=== PATIENT | female | born 1985 | race Caucasian/White ===

== ENCOUNTER 2020-02-17 20:30 | Emergency (ER) | payer OTHER, SELFPAY ==
[2020-02-17 20:36] VITALS: BP 159/109; PULSE 69; RESP 18; O2SAT 99
--- NOTE | 2020-02-17 20:41 | DI.RAD.S_ITS ---
PROCEDURE: XR CHEST 2V INDICATIONS: shortness of breath TECHNIQUE: 2 views of the chest were acquired. COMPARISON: None. FINDINGS: Surgical changes and devices: None. Lungs and pleura: Lungs are clear. No pleural effusions or pneumothorax. Mediastinum: Mediastinal contours are normal. Heart size is normal. Bones and chest wall: No suspicious bony abnormalities. Soft tissues appear unremarkable. IMPRESSION: No acute process. Dictated by: Ahmet Navarro M.D. on 02/17/2020 at 20:53 Approved by: Ahmet Navarro M.D. on 02/17/2020 at 20:54
[2020-02-17 21:09] VITALS: PULSE 64; O2SAT 99
[2020-02-17 21:12] VITALS: BP 135/82; PULSE 61; RESP 17; O2SAT 100
[2020-02-17 21:13] LABS: Add Manual Diff / Slide Review NO; Basophils Absolute Auto 100 /uL (0-100); Basophils Percent Auto 1.2 % (0-2); Eosinophils Absolute Auto 200 /uL (0-450); Eosinophils Percent Auto 2.3 % (2-4); Hematocrit 41.5 % (36-46); Hemoglobin 13.9 g/dL (12.0-16.0); Lymphocytes Absolute Auto 3200 /uL (1100-4500); Lymphocytes Percent Auto 33.2 % (25-40); Mean Corpuscular HGB Conc 33.5 % (30-36); Mean Corpuscular Hemoglobin 30.2 PG (26-34); Mean Corpuscular Volume 90.1 fL (80-100); Monocytes Absolute Auto 700 /uL (0-900); Neutrophils Absolute Auto 5500 /uL (1500-7000); Neutrophils Percent Auto 56.3 % (50-75); Platelet Count 305 X10^3/uL (150-400); Red Blood Cell Count 4.61 X10^6/uL (4.0-5.2); Red Cell Distribution Width 13.2 % (11.6-14.8); White Blood Cell Count 9.7 X10^3/uL (4.5-11.0)
[2020-02-17 21:24] LABS: Lactate (Lactic Acid) 0.6 mmol/L (0.7-2.1)
[2020-02-17 21:25] LABS: Alanine Aminotransferase 30 IU/L (<35); Albumin Globulin Ratio 1.3 (1.0-2.8); Alkaline Phosphatase 70 U/L (38-126); Aspartate Aminotransferase 32 IU/L (14-36); BUN Creatinine Ratio 14.8 (6-22); Bilirubin Total 0.4 mg/dL (0.2-1.3); Blood Urea Nitrogen 12 mg/dL (7-17); Calcium 9.3 mg/dL (8.4-10.2); Carbon Dioxide 34 mmol/L (22-32); Chloride 102 mmol/L (98-107); Estimated Glomerular Filt Rate > 60.0 mL/min (>60); Glucose 87 mg/dL (70-100); HEMOLYSIS < 15 (0-50); Sodium 139 mmol/L (137-145)
[2020-02-17 21:30] VITALS: BP 124/89; PULSE 73; RESP 17; O2SAT 100
[2020-02-17 21:48] LABS: COVID19 -Nasal RAPID Negative (Negative)
[2020-02-17 22:00] VITALS: BP 136/90; PULSE 75; RESP 22; O2SAT 100
--- NOTE | 2020-02-17 22:02 | ED_ITS ---
HPI - General Adult General Chief complaint: Shortness of Breath/Dyspnea Stated complaint: difficulty breathing, stress Time Seen by Provider: 02/17/20 20:57 Source: patient Mode of arrival: Ambulatory Limitations: no limitations History of Present Illness HPI narrative: 35-year-old female here for evaluation of shortness of breath. She also admits to being extremely anxious and stressed out. She states that for the past several months she occasionally has episodes where she has shortness of breath. There are no chest pain associated with it. She is unsure of his is associated with the anxiety and the stress although she thinks it may be. She states that when the symptoms come on the last for ?a long time ?meaning potentially days/weeks. She is currently having the symptoms. She is currently feeling stressed. Has not been evaluated for these symptoms prior to this. Related Data Allergies Allergy/AdvReac Type Severity Reaction Status Date / Time amoxicillin [AMOXICILLIN] Allergy Unknown Unverified 08/28/17 12:10 Review of Systems Constitutional Constitutional: Denies fever(s) Cardiovascular Cardiovascular: Denies chest pain and Reports dyspnea Respiratory Respiratory: Denies cough and Reports dyspnea Gastrointestinal Gastrointestinal: Denies abdominal pain, Denies nausea and Denies vomiting Genitourinary Genitourinary: Denies dysuria Genitourinary: Denies dysuria Musculoskeletal Musculoskeletal: Denies arthralgias and Denies myalgias Integumentary/Breasts Skin/Breast: Denies rash Neurologic Neurologic: Denies behavioral changes Psychiatric Psychiatric: Denies behavioral changes Hematologic/Lymphatic Hematologic/Lymphatic: Denies easy bleeding and Denies easy bruising Patient History Medical History Anxiety (Inactive) Threatened miscarriage (Inactive) Twin gestation in first trimester (Inactive) Social History Smoking Status: Current some day smoker Smoking Status: Current some day smoker Substance Use Type: marijuana Exam Initial Vital Signs Initial Vital Signs: Vital Signs Pulse Rate 69 02/17/20 20:36 Respiratory Rate 18 02/17/20 20:36 Blood Pressure 159/109 H 02/17/20 20:36 Pulse Oximetry 99 02/17/20 20:36 Const General: cooperative, healthy appearing, comfortable and well developed Limitations: mental status not altered [facility] Head: normal to inspection and normocephalic Resp Effort & Inspection: normal respiratory effort Auscultation: clear to auscultation bilaterally Cardio Rate: regular rate Rhythm: regular rhythm GI Inspection: non-distended Palpation: soft Skin Lesions: no lesions Rashes: no rashes Neuro General: patient alert and patient awake Cognition: normal cognition Speech: speech normal Extrem General: normal to inspection and capillary refill normal Psych Appearance: grossly normal and well kempt Course Orders Ordered: ED Orders 02/17/20 20:41 XR chest 2V Stat Measure peak expiratory flow ONCE RT Consult Eval and Treat Now 02/17/20 21:00 Complete Blood Count AUTO DIFF Stat Comprehensive Metabolic Panel Stat Lactate (Lactic Acid) Stat 02/17/20 21:10 COVID19 -ED/INPAT/OR/L&D Stat Vital Signs Vital signs: Vital Signs - 8 hr 02/17/20 20:36 02/17/20 21:09 02/17/20 21:12 Pulse Rate 69 64 61 Respiratory Rate 18 17 Blood Pressure 159/109 H 135/82 Pulse Oximetry 99 99 100 02/17/20 21:30 02/17/20 22:00 Pulse Rate 73 75 Respiratory Rate 17 22 Blood Pressure 124/89 136/90 Pulse Oximetry 100 100 Medical Decision Making Lab Data Lab results reviewed: Yes I reviewed the patient's lab results. Result diagrams: 02/17/20 21:00 02/17/20 21:00 Labs: Lab Results 02/17/20 02/17/20 02/17/20 Range/Units 21:00 21:00 21:00 WBC 9.7 (4.5-11.0) X10^3/uL RBC 4.61 (4.0-5.2) X10^6/uL Hgb 13.9 (12.0-16.0) g/dL Hct 41.5 (36-46) % MCV 90.1 (80-100) fL MCH 30.2 (26-34) PG MCHC 33.5 (30-36) % RDW 13.2 (11.6-14.8) % Plt Count 305 (150-400) X10^3/uL Neut % (Auto) 56.3 (50-75) % Lymph % (Auto) 33.2 (25-40) % [place] % (Auto) 7.0 (3-14) % Eos % (Auto) 2.3 (2-4) % Baso % (Auto) 1.2 (0-2) % Neut # (Auto) 5500 (0248-4847) /uL Lymph # (Auto) 3200 (5299-1285) /uL [place] # (Auto) 700 (0-900) /uL Eos # (Auto) 200 (0-450) /uL Baso # (Auto) 100 (0-100) /uL Sodium 139 (137-145) mmol/L Potassium 4.0 (3.4-5.1) mmol/L Chloride 102 (98-107) mmol/L Carbon Dioxide 34 H (22-32) mmol/L BUN 12 (7-17) mg/dL Creatinine 0.81 (0.52-1.04) mg/dL Estimated GFR > 60.0 (>60) mL/min BUN/Creatinine Ratio 14.8 (6-22) Glucose 87 (70-100) mg/dL Lactate 0.6 L (0.7-2.1) mmol/L Calcium 9.3 (8.4-10.2) mg/dL Total Bilirubin 0.4 (0.2-1.3) mg/dL AST 32 (14-36) IU/L ALT 30 (<35) IU/L Alkaline Phosphatase 70 (38-126) U/L Total Protein 7.0 (6.3-8.2) g/dL Albumin 4.0 (3.5-5.0) g/dL Globulin 3.0 (1.7-4.1) g/dL Albumin/Globulin Ratio 1.3 (1.0-2.8) COVID-19 PCR (Negative) 02/17/20 Range/Units 21:10 WBC (4.5-11.0) X10^3/uL RBC (4.0-5.2) X10^6/uL Hgb (12.0-16.0) g/dL Hct (36-46) % MCV (80-100) fL MCH (26-34) PG MCHC (30-36) % RDW (11.6-14.8) % Plt Count (150-400) X10^3/uL Neut % (Auto) (50-75) % Lymph % (Auto) (25-40) % [place] % (Auto) (3-14) % Eos % (Auto) (2-4) % Baso % (Auto) (0-2) % Neut # (Auto) (1649-4758) /uL Lymph # (Auto) (5851-1369) /uL [place] # (Auto) (0-900) /uL Eos # (Auto) (0-450) /uL Baso # (Auto) (0-100) /uL Sodium (137-145) mmol/L Potassium (3.4-5.1) mmol/L Chloride (98-107) mmol/L Carbon Dioxide (22-32) mmol/L BUN (7-17) mg/dL Creatinine (0.52-1.04) mg/dL Estimated GFR (>60) mL/min BUN/Creatinine Ratio (6-22) Glucose (70-100) mg/dL Lactate (0.7-2.1) mmol/L Calcium (8.4-10.2) mg/dL Total Bilirubin (0.2-1.3) mg/dL AST (14-36) IU/L ALT (<35) IU/L Alkaline Phosphatase (38-126) U/L Total Protein (6.3-8.2) g/dL Albumin (3.5-5.0) g/dL Globulin (1.7-4.1) g/dL Albumin/Globulin Ratio (1.0-2.8) COVID-19 PCR Negative (Negative) Imaging Data Chest x-ray: Radiologist's Impression: [address] [address] XRay Report Signed Patient: Vivian Downs [facility]#: [id number] : 1985Acct:[id number] Age/Sex: 35 / FDate of Service: 02/17/20 Loc: ED Accession Number: [id number] Procedure: XR chest 2V Ordering Provider: Rajinder Durant D.O. PROCEDURE: XR CHEST 2V INDICATIONS: shortness of breath TECHNIQUE: 2 views of the chest were acquired. COMPARISON: None. FINDINGS: Surgical changes and devices: None. Lungs and pleura: Lungs are clear. No pleural effusions or pneumothorax. Mediastinum: Mediastinal contours are normal. Heart size is normal. Bones and chest wall: No suspicious bony abnormalities. Soft tissues appear unremarkable. IMPRESSION: No acute process. Dictated by: Ahmet Navarro M.D. on 02/17/2020 at 20:53 Approved by: Ahmet Navarro M.D. on 02/17/2020 at 20:54 ECG Data Attestation: I personally reviewed and interpreted this ECG as follows: Prior ECG tracings: not available for review Interpretation: Sinus rhythm Ventricular rate 67 Sinus rhythm in Normal NM interval Normal QRS Normal QTC No ST T wave changes MDM Narrative Medical decision making narrative: She is nontoxic appearing, a benign exam. Chest x-ray is negative. EKG is unremarkable. Low suspicion for ACS. Low suspicion for pulmonary embolism. Low suspicion for any other infectious etiology. I did discuss this with the patient. Provided reassurance that her symptoms were not emergent currently. Informed patient she should talk with her primary doctor about potentially being on long-term anxiety medications. She expressed understanding of this and will contact her primary provider. She has been on these medications in the past but has stopped taking them. No in dication for admission the hospital per over hold on further radiologic studies for now. She was given return precautions. She expressed understanding and agreement. Discharge Plan Departure Patient Disposition: Home Clinical Impression: Anxiety, Shortness of breath Discharge Date/Time: 02/17/20 22:13 Instructions: DI for Anxiety -- Adult Activity Restrictions/Additional Instructions: Your workup here in the emergency department did not show any indication of an emergent issue. Your symptoms could very well be caused by anxiety. Recommend you contact your primary provider for a follow-up like we discussed. Return to the emergency department for any new or worsening symptoms Referrals: Nurys Bravo MD [Primary Care Provider] -
== END 2020-02-17 22:13 | disposition home or self-care (01) ==
PROVIDERS: Emergency Provider Emergency Medicine; Family Provider Family Medicine; PCP Family Medicine
DX: F41.9 Anxiety disorder, unspecified (principal); R06.02 Shortness of breath; Z03.818 Encounter for observation for suspected exposure to other biological agents ruled out
CPT/HCPCS: 36415; 71046; 80053; 83605; 85025; 87635; 93005; 99283

== ENCOUNTER → 2022-03-28 15:00 | Outpatient (CLI) | payer OTHER, SELFPAY ==
--- NOTE | 2022-03-28 | DI.RAD.S_ITS ---
PROCEDURE: XR ACUTE ABDOMEN SERIES INDICATIONS: Left lower quadrant pain TECHNIQUE: One view chest and two views of the abdomen were acquired. COMPARISON: None. FINDINGS: Surgical changes and devices: None. Chest: Lungs are clear. Heart size is normal. No pleural effusions. No pneumoperitoneum. Abdomen: Bowel gas pattern is normal. No suspicious calcifications. Visualized solid organ contours appear normal. Bones: No suspicious bony lesions. IMPRESSION: No acute finding. Dictated by: Soto Armstrong M.D. on 03/29/2022 at 9:22 Approved by: Soto Armstrong M.D. on 03/29/2022 at 9:23
== END ==
PROVIDERS: Family Provider Family Medicine; PCP Family Medicine; Referring Provider Family Medicine; Visit Provider Family Medicine
DX: R10.32 Left lower quadrant pain (principal)
CPT/HCPCS: 74022

== ENCOUNTER 2022-04-19 16:04 | Emergency (ER) | payer OTHER, SELFPAY ==
[2022-04-19] VITALS (12 sets, daily range): BP systolic 131–148; BP diastolic 63–91; PULSE 67–104; RESP 18; TEMP 36.6; O2SAT 92–99; BMI 42.9
--- NOTE | 2022-04-19 16:11 | DI.US.S_ITS ---
PROCEDURE: US ABDOMEN COMPLETE INDICATIONS: Abdominal pain, questionable splenomegaly TECHNIQUE: Real-time scanning was performed of the abdominal and retroperitoneal organs, with image documentation. COMPARISON: [facility], CT, CT ABDOMEN PELVIS W CON, 04/19/2022, 16:45. FINDINGS: Liver: Grossly unremarkable, evaluation limited by body habitus. Gallbladder: Normal. Biliary ducts: Extrahepatic bile ducts are obscured by bowel gas and cannot be evaluated. No intrahepatic biliary ductal dilatation identified. Pancreas: Obscured by bowel gas, not evaluated. Spleen: Normal size and appearance. Kidneys: Grossly normal, limited evaluation due to body habitus. Aorta: Nonaneurysmal with atherosclerosis. Iliacs: Proximal common iliac arteries are normal in caliber at less than 2.5 cm. IVC: Intrahepatic inferior vena cava is patent. Miscellaneous: No free abdominal fluid. IMPRESSION: No acute finding. No splenomegaly. Dictated by: Soto Armstrong M.D. on 04/19/2022 at 18:23 Approved by: Soto Armstrong M.D. on 04/19/2022 at 18:24
--- NOTE | 2022-04-19 16:37 | DI.CT.S_ITS ---
PROCEDURE: CT ABDOMEN PELVIS W CON INDICATIONS: left upper quadrant pain, worsening over 2 weeks/2 years, TECHNIQUE: After the administration of intravenous contrast, axial sections acquired from the lung bases to the pubic symphysis. Coronal and sagittal reformats were performed. For radiation dose reduction, the following was used: automated exposure control, adjustment of mA and/or kV according to patient size. COMPARISON: None. FINDINGS: Image quality: Excellent. Lung bases: Unremarkable. Heart: No significant findings. ABDOMEN: Liver: Homogeneous and normal hepatic parenchymal attenuation. No evidence of mass or other significant abnormality. Gallbladder: Normal. Biliary ducts: Nondilated. Pancreas: No peripancreatic inflammatory changes. No pancreatic ductal dilatation. Spleen: Normal size and appearance. Adrenal Glands: No nodule or mass. Kidneys and Ureters: No significant abnormality. Stomach and Bowel: No acute enteric process demonstrated. Peritoneum: No abnormal intraperitoneal fluid. No free air. Ventral Wall: No hernias. Abdominal Nodes: No retroperitoneal or mesenteric adenopathy by size criteria. Vessels: Aorta and inferior vena cava are normal in size. PELVIS: Pelvic Organs: Unremarkable. Bladder: Unremarkable. Pelvic Nodes: No enlarged lymph nodes. Miscellaneous: No hernias are seen. Bones: Unremarkable. IMPRESSION: No acute finding. Dictated by: Soto Armstrong M.D. on 04/19/2022 at 18:06 Approved by: Soto Armstrong M.D. on 04/19/2022 at 18:09
--- NOTE | 2022-04-19 16:48 | ED_ITS ---
HPI - Abdominal Pain <YAYO Mcwilliams - Last Filed: 04/19/22 20:08> General Chief Complaint: Abdominal Pain Stated Complaint: sent by MD to get her spleen checked out Time Seen by Provider: 04/19/22 16:10 Source: patient Mode of arrival: Ambulatory History of Present Illness HPI narrative: This is a 37-year-old female who presents to the emergency department complaining of left upper quadrant/diaphoretic pain that has been ongoing for the last 2-3 years but worse over the last 2-3 weeks. She states is i ntermittent but has been constant over the last few weeks. She was recently started on Prilosec by her PCP who is Dr. Bravo. She complains of pain to her epigastrium with palpation, has a history of appendectomy and vaginal delivery of 1 child. Denies any other surgical or abdominal history. Denies belching, gas, states her stools have been normal, endorses mild nausea today without vomiting, without flank pain, without urinary retention or dysuria. Denies urinary frequency. Denies any pain with bowel movements, states that she is had intermittent hives over the last few years but this is not related. She states that she is been using Motrin which has been helpful, she is concerned about an enlarged spleen, denies any upper respiratory symptoms. States that she is been exposed to those were sick but she denies any sore throat, congestion, cough, fever or chills. States that she had COVID in August of 2021. Denies any recent vaccinations, states that she is had night sweats for the last 2 weeks. Related Data Home Medications Medication Instructions Recorded Confirmed No Known Home Medications 04/19/22 04/19/22 Allergies Allergy/AdvReac Type Severity Reaction Status Date / Time amoxicillin [AMOXICILLIN] Allergy Unknown Unverified 04/19/22 15:25 Review of Systems <YAYO Mcwilliams - Last Filed: 04/19/22 20:08> Review of Systems Narrative: Review of systems is negative for acute abnormalities unless otherwise noted in HPI Patient History <YAYO Mcwilliams - Last Filed: 04/19/22 20:08> Medical History (Updated 04/19/22 @ 20:08 by YAYO Mcwilliams) Anxiety Threatened miscarriage Twin gestation in first trimester Social History Smoking Status: Current some day smoker Smoking Status: Current some day smoker Substance Use Type: marijuana Exam <YAYO Mcwilliams - Last Filed: 04/19/22 20:08> Narrative Exam Narrative: Reviewed vitals signs and nursing notes. General: cooperative, comfortable, in no acute distress, well groomed HEENT: symmetrical facial expressions, moist mucous membranes Cardiovascular: regular rate and rhythm, no peripheral edema, warm extremities Respiratory: normal effort, able to speak in complete sentences, without wheezing, stridor, or abnormal breath sounds. No retractions or tachypnea. GI: abdomen soft, tenderness to palpation to the epigastrium, left upper quadrant and with palpation spleen which does not feel enlarged, mild left side flank tenderness, without tenderness to suprapubic region, lower abdominal contents, states that stools have been regular. She has tenderness to [place] with deep inspiration. , nondistended, without masses, rebound tenderness or exquisite tenderness with exam. MSK: moves all extremities, neurovascularly intact, no weakness, normal tone Skin: brisk capillary refill, without pallor or erythema Neuro: normal speech and cognition, A&O x3, ambulatory, clear speech Psych: mental status is grossly normal, congruent mood, normal affect, pleasant and cooperative Initial Vital Signs Initial Vital Signs: Vital Signs Temperature 98 F 04/19/22 16:05 Pulse Rate 96 H 04/19/22 16:05 Respiratory Rate 18 04/19/22 16:05 Blood Pressure 148/91 H 04/19/22 16:05 Pulse Oximetry 96 04/19/22 16:05 Oxygen Delivery Method 04/19/22 16:05 <Marisa Forrester MD - Last Filed: 04/20/22 03:32> Initial Vital Signs Initial Vital Signs: Vital Signs Temperature 98 F 04/19/22 16:05 Pulse Rate 96 H 04/19/22 16:05 Respiratory Rate 18 04/19/22 16:05 Blood Pressure 148/91 H 04/19/22 16:05 Pulse Oximetry 96 04/19/22 16:05 Oxygen Delivery Method 04/19/22 16:05 Course <YAYO Mcwilliams - Last Filed: 04/19/22 20:08> Orders Ordered: Discontinued Medications Diazepam (Diazepam 10 Mg/2 Ml Syringe) 2 mg IV NOW ONE Stop: 04/19/22 16:15 Last Admin: 04/19/22 17:08 Dose: 2 mg Documented By: RB Sodium Chloride (Normal Saline 0.9%) 1,000 mls @ 1,000 mls/hr IV BOLUS ONE Stop: 04/19/22 17:10 Last Infusion: 04/19/22 18:56 Dose: 0 mls/hr Documented By: Admin: 04/19/22 17:10 Dose: 1,000 mls/hr Documented By: RB Ketorolac Tromethamine (Ketorolac 30 Mg/Ml Vial) 15 mg IV NOW ONE Stop: 04/19/22 16:12 Last Admin: 04/19/22 17:09 Dose: 15 mg Documented By: ADI Ondansetron HCl (Ondansetron 4 Mg/2 Ml Inj) 4 mg IV NOW ONE Stop: 04/19/22 16:12 Last Admin: 04/19/22 17:09 Dose: 4 mg Documented By: ADI Vital Signs Vital signs: Vital Signs - 8 hr 04/19/22 16:05 04/19/22 16:12 04/19/22 16:12 Temperature 98 F Pulse Rate 96 H 104 H Respiratory Rate 18 Blood Pressure 148/91 H 148/91 H Pulse Oximetry 96 95 Oxygen Delivery Method Room Air 04/19/22 17:20 04/19/22 17:22 04/19/22 17:22 Temperature Pulse Rate 71 71 Respiratory Rate Blood Pressure 136/74 Pulse Oximetry 96 95 Oxygen Delivery Method 04/19/22 17:43 04/19/22 18:00 04/19/22 18:14 Temperature Pulse Rate 67 72 92 H Respiratory Rate Blood Pressure Pulse Oximetry 92 99 97 Oxygen Delivery Method 04/19/22 18:15 04/19/22 18:15 04/19/22 18:30 Temperature Pulse Rate 77 84 Respiratory Rate Blood Pressure 131/82 Pulse Oximetry 97 96 Oxygen Delivery Method 04/19/22 18:31 04/19/22 18:31 04/19/22 19:01 Temperature Pulse Rate 71 85 Respiratory Rate Blood Pressure 142/65 H Pulse Oximetry 96 97 Oxygen Delivery Method 04/19/22 19:02 04/19/22 19:02 Temperature Pulse Rate 87 Respiratory Rate Blood Pressure 131/63 Pulse Oximetry 95 Oxygen Delivery Method <Marisa Forrester MD - Last Filed: 04/20/22 03:32> Orders Ordered: Discontinued Medications Diazepam (Diazepam 10 Mg/2 Ml Syringe) 2 mg IV NOW ONE Stop: 04/19/22 16:15 Last Admin: 04/19/22 17:08 Dose: 2 mg Documented By: RB Sodium Chloride (Normal Saline 0.9%) 1,000 mls @ 1,000 mls/hr IV BOLUS ONE Stop: 04/19/22 17:10 Last Infusion: 04/19/22 18:56 Dose: 0 mls/hr Documented By: Admin: 04/19/22 17:10 Dose: 1,000 mls/hr Documented By: RB Ketorolac Tromethamine (Ketorolac 30 Mg/Ml Vial) 15 mg IV NOW ONE Stop: 04/19/22 16:12 Last Admin: 04/19/22 17:09 Dose: 15 mg Documented By: RB Ondansetron HCl (Ondansetron 4 Mg/2 Ml Inj) 4 mg IV NOW ONE Stop: 04/19/22 16:12 Last Admin: 04/19/22 17:09 Dose: 4 mg Documented By: ADI Vital Signs Vital signs: Vital Signs - 8 hr 04/19/22 16:05 04/19/22 16:12 04/19/22 16:12 Temperature 98 F Pulse Rate 96 H 104 H Respiratory Rate 18 Blood Pressure 148/91 H 148/91 H Pulse Oximetry 96 95 Oxygen Delivery Method Room Air 04/19/22 17:20 04/19/22 17:22 04/19/22 17:22 Temperature Pulse Rate 71 71 Respiratory Rate Blood Pressure 136/74 Pulse Oximetry 96 95 Oxygen Delivery Method 04/19/22 17:43 04/19/22 18:00 04/19/22 18:14 Temperature Pulse Rate 67 72 92 H Respiratory Rate Blood Pressure Pulse Oximetry 92 99 97 Oxygen Delivery Method 04/19/22 18:15 04/19/22 18:15 04/19/22 18:30 Temperature Pulse Rate 77 84 Respiratory Rate Blood Pressure 131/82 Pulse Oximetry 97 96 Oxygen Delivery Method 04/19/22 18:31 04/19/22 18:31 04/19/22 19:01 Temperature Pulse Rate 71 85 Respiratory Rate Blood Pressure 142/65 H Pulse Oximetry 96 97 Oxygen Delivery Method 04/19/22 19:02 04/19/22 19:02 Temperature Pulse Rate 87 Respiratory Rate Blood Pressure 131/63 Pulse Oximetry 95 Oxygen Delivery Method MDM - Abdominal Pain <DENYS McwilliamsP - Last Filed: 04/19/22 20:08> Lab Data Result diagrams: 04/19/22 17:00 04/19/22 17:00 Labs: Lab Results 04/19/22 04/19/22 04/19/22 Range/Units 16:40 17:00 17:00 WBC 10.2 (4.5-11.0) X10^3/uL RBC 4.73 (4.0-5.2) X10^6/uL Hgb 14.6 (12.0-16.0) g/dL Hct 42.7 (36-46) % MCV 90.2 (80-100) fL MCH 30.9 (26-34) PG MCHC 34.2 (30-36) % RDW 13.6 (11.6-14.8) % Plt Count 321 (150-400) X10^3/uL Neut % (Auto) 61.7 (50-75) % Lymph % (Auto) 29.2 (25-40) % [place] % (Auto) 6.9 (3-14) % Eos % (Auto) 1.1 L (2-4) % Baso % (Auto) 1.1 (0-2) % Neut # (Auto) 6300 (1004-7955) /uL Lymph # (Auto) 3000 (1876-8354) /uL [place] # (Auto) 700 (0-900) /uL Eos # (Auto) 100 (0-450) /uL Baso # (Auto) 100 (0-100) /uL Sodium 138 (137-145) mmol/L Potassium 4.2 (3.4-5.1) mmol/L Chloride 104 (98-107) mmol/L Carbon Dioxide 29 (22-32) mmol/L BUN 10 (7-17) mg/dL Creatinine 0.68 (0.52-1.04) mg/dL Estimated GFR > 60 (>60) mL/min BUN/Creatinine Ratio 14.7 (6-22) Glucose 84 (70-100) mg/dL Lactate (0.7-2.1) mmol/L Calcium 9.4 (8.4-10.2) mg/dL Total Bilirubin 0.6 (0.2-1.3) mg/dL AST 40 H (14-36) IU/L ALT 44 H (<35) IU/L Alkaline Phosphatase 64 (38-126) U/L C-Reactive Protein (<1.0) mg/dL Total Protein 7.3 (6.3-8.2) g/dL Albumin 4.2 (3.5-5.0) g/dL Globulin 3.1 (1.7-4.1) g/dL Albumin/Globulin Ratio 1.4 (1.0-2.8) Lipase 48 (23-300) U/L Procalcitonin 0.04 (<0.5) ng/mL Urine RBC None seen (0-5/HPF) Urine WBC 0-1/hpf (0-5/HPF) Ur Squamous Epith Cells None seen (0-5/HPF) Urine Bacteria Occasional (0-1) (None) Urine Mucus 1+ H (Negative) SARS-CoV-2 (PCR) (Negative) Influenza A (RT-PCR) (NEGATIVE) Influenza B (RT-PCR) (NEGATIVE) RSV (PCR) (Negative) 04/19/22 04/19/22 04/19/22 Range/Units 17:00 17:00 18:15 WBC (4.5-11.0) X10^3/uL RBC (4.0-5.2) X10^6/uL Hgb (12.0-16.0) g/dL Hct (36-46) % MCV (80-100) fL MCH (26-34) PG MCHC (30-36) % RDW (11.6-14.8) % Plt Count (150-400) X10^3/uL Neut % (Auto) (50-75) % Lymph % (Auto) (25-40) % [place] % (Auto) (3-14) % Eos % (Auto) (2-4) % Baso % (Auto) (0-2) % Neut # (Auto) (2964-7591) /uL Lymph # (Auto) (1899-3603) /uL [place] # (Auto) (0-900) /uL Eos # (Auto) (0-450) /uL Baso # (Auto) (0-100) /uL Sodium (137-145) mmol/L Potassium (3.4-5.1) mmol/L Chloride (98-107) mmol/L Carbon Dioxide (22-32) mmol/L BUN (7-17) mg/dL Creatinine (0.52-1.04) mg/dL Estimated GFR (>60) mL/min BUN/Creatinine Ratio (6-22) Glucose (70-100) mg/dL Lactate 0.9 (0.7-2.1) mmol/L Calcium (8.4-10.2) mg/dL Total Bilirubin (0.2-1.3) mg/dL AST (14-36) IU/L ALT (<35) IU/L Alkaline Phosphatase (38-126) U/L C-Reactive Protein 0.5 (<1.0) mg/dL Total Protein (6.3-8.2) g/dL Albumin (3.5-5.0) g/dL Globulin (1.7-4.1) g/dL Albumin/Globulin Ratio (1.0-2.8) Lipase (23-300) U/L Procalcitonin (<0.5) ng/mL Urine RBC (0-5/HPF) Urine WBC (0-5/HPF) Ur Squamous Epith Cells (0-5/HPF) Urine Bacteria (None) Urine Mucus (Negative) SARS-CoV-2 (PCR) Negative (Negative) Influenza A (RT-PCR) Flu a negative (NEGATIVE) Influenza B (RT-PCR) Flu b negative (NEGATIVE) RSV (PCR) Negative (Negative) Point of care testing: Point of Care Testing Test Results Negative Urine Dip Bedside Urine Glucose Negative Bedside Urine Bilirubin - Negative Bedside Urine Ketone - Negative Urine Specific [place] 1.015 Bedside Urine Occult Blood - Negative Bedside Urine pH 7.5 Bedside Urine Protein +/- 15 Bedside Urine Urobilinogen 0.2 Bedside Urine Nitrite - Negative Bedside Urine Leukocytes - Negative Esterase MDM Narrative Medical decision making narrative: This is a 37-year-old female who presents emergency department with epigastric and left upper quadrant pain which has been worsening over the last 2-3 weeks and patient states it has been present for last 2-3 years. Her primary care provider Dr. Bravo recently started patient on Prilosec for past history of g astric ulcer. She is taking 20 mg daily. On exam today her lab work is unremarkable, she had an abdominal ultrasound which does not show any acute finding, no splenomegaly as patient was concerned about an enlarged spleen, an abdominal/pelvic CT with contrast was negative for acute abnormality and without any pain created changes, intraperitoneal fluid/air, or other concerning finding. Liver appears to have fatty liver changes but otherwise unremarkable. Patient's pain was exacerbated this morning after she had a sugar free caffeine drink. I think this is most likely gastritis versus peptic ulcer versus duodenal ulcer. Patient denies any blood in her stool, denies dark stools. She is not had an endoscopy, this could be secondary to H pylori, she is a former smoker and longer uses tobacco products. I recommend that she follow-up with Dr. Bravo, encouraged to start taking her Prilosec b.i.d. for a total of 40 mg daily. Her urine was negative for infection and respiratory panel negative for tested viruses. History of appendicectomy. No peritoneal signs on abdominal exam. Patient remains p.o. tolerant. Serial abdominal exam without increase in abdominal pain. Given history and exam, low suspicion for acute abdominal process, such as acute cholecystitis, pancreatitis, perforated viscus, colitis, diverticulitis or torsion. Extensive conversation about ER return precautions and need for close follow-up. <Marisa Forrester MD - Last Filed: 04/20/22 03:32> Lab Data Labs: Lab Results 04/19/22 04/19/22 04/19/22 Range/Units 16:40 17:00 17:00 WBC 10.2 (4.5-11.0) X10^3/uL RBC 4.73 (4.0-5.2) X10^6/uL Hgb 14.6 (12.0-16.0) g/dL Hct 42.7 (36-46) % MCV 90.2 (80-100) fL MCH 30.9 (26-34) PG MCHC 34.2 (30-36) % RDW 13.6 (11.6-14.8) % Plt Count 321 (150-400) X10^3/uL Neut % (Auto) 61.7 (50-75) % Lymph % (Auto) 29.2 (25-40) % [place] % (Auto) 6.9 (3-14) % Eos % (Auto) 1.1 L (2-4) % Baso % (Auto) 1.1 (0-2) % Neut # (Auto) 6300 (2717-4114) /uL Lymph # (Auto) 3000 (3471-9411) /uL [place] # (Auto) 700 (0-900) /uL Eos # (Auto) 100 (0-450) /uL Baso # (Auto) 100 (0-100) /uL Sodium 138 (137-145) mmol/L Potassium 4.2 (3.4-5.1) mmol/L Chloride 104 (98-107) mmol/L Carbon Dioxide 29 (22-32) mmol/L BUN 10 (7-17) mg/dL Creatinine 0.68 (0.52-1.04) mg/dL Estimated GFR > 60 (>60) mL/min BUN/Creatinine Ratio 14.7 (6-22) Glucose 84 (70-100) mg/dL Lactate (0.7-2.1) mmol/L Calcium 9.4 (8.4-10.2) mg/dL Total Bilirubin 0.6 (0.2-1.3) mg/dL AST 40 H (14-36) IU/L ALT 44 H (<35) IU/L Alkaline Phosphatase 64 (38-126) U/L C-Reactive Protein (<1.0) mg/dL Total Protein 7.3 (6.3-8.2) g/dL Albumin 4.2 (3.5-5.0) g/dL Globulin 3.1 (1.7-4.1) g/dL Albumin/Globulin Ratio 1.4 (1.0-2.8) Lipase 48 (23-300) U/L Procalcitonin 0.04 (<0.5) ng/mL Urine RBC None seen (0-5/HPF) Urine WBC 0-1/hpf (0-5/HPF) Ur Squamous Epith Cells None seen (0-5/HPF) Urine Bacteria Occasional (0-1) (None) Urine Mucus 1+ H (Negative) SARS-CoV-2 (PCR) (Negative) Influenza A (RT-PCR) (NEGATIVE) Influenza B (RT-PCR) (NEGATIVE) RSV (PCR) (Negative) 04/19/22 04/19/22 04/19/22 Range/Units 17:00 17:00 18:15 WBC (4.5-11.0) X10^3/uL RBC (4.0-5.2) X10^6/uL Hgb (12.0-16.0) g/dL Hct (36-46) % MCV (80-100) fL MCH (26-34) PG MCHC (30-36) % RDW (11.6-14.8) % Plt Count (150-400) X10^3/uL Neut % (Auto) (50-75) % Lymph % (Auto) (25-40) % [place] % (Auto) (3-14) % Eos % (Auto) (2-4) % Baso % (Auto) (0-2) % Neut # (Auto) (1057-2058) /uL Lymph # (Auto) (5767-0321) /uL [place] # (Auto) (0-900) /uL Eos # (Auto) (0-450) /uL Baso # (Auto) (0-100) /uL Sodium (137-145) mmol/L Potassium (3.4-5.1) mmol/L Chloride (98-107) mmol/L Carbon Dioxide (22-32) mmol/L BUN (7-17) mg/dL Creatinine (0.52-1.04) mg/dL Estimated GFR (>60) mL/min BUN/Creatinine Ratio (6-22) Glucose (70-100) mg/dL Lactate 0.9 (0.7-2.1) mmol/L Calcium (8.4-10.2) mg/dL Total Bilirubin (0.2-1.3) mg/dL AST (14-36) IU/L ALT (<35) IU/L Alkaline Phosphatase (38-126) U/L C-Reactive Protein 0.5 (<1.0) mg/dL Total Protein (6.3-8.2) g/dL Albumin (3.5-5.0) g/dL Globulin (1.7-4.1) g/dL Albumin/Globulin Ratio (1.0-2.8) Lipase (23-300) U/L Procalcitonin (<0.5) ng/mL Urine RBC (0-5/HPF) Urine WBC (0-5/HPF) Ur Squamous Epith Cells (0-5/HPF) Urine Bacteria (None) Urine Mucus (Negative) SARS-CoV-2 (PCR) Negative (Negative) Influenza A (RT-PCR) Flu a negative (NEGATIVE) Influenza B (RT-PCR) Flu b negative (NEGATIVE) RSV (PCR) Negative (Negative) Point of care testing: Point of Care Testing Test Results Negative Urine Dip Bedside Urine Glucose Negative Bedside Urine Bilirubin - Negative Bedside Urine Ketone - Negative Urine Specific [place] 1.015 Bedside Urine Occult Blood - Negative Bedside Urine pH 7.5 Bedside Urine Protein +/- 15 Bedside Urine Urobilinogen 0.2 Bedside Urine Nitrite - Negative Bedside Urine Leukocytes - Negative Esterase Discharge Plan Departure Patient Disposition: Home Clinical Impression: Acute epigastric pain, Left upper quadrant abdominal pain Instructions: Peptic Ulcer Disease (Alternative Therapy), Acute Abdominal Pain, Duodenal Ulcer, DI for Peptic Ulcer, Nonalcoholic Fatty Liver Disease Activity Restrictions/Additional Instructions: *You have been diagnosed with left-sided upper abdominal pain wishes not have any significant findings on your workup today, all of your labs are unremarkable, is mild elevation to AST and ALT which are liver enzymes, this is often found with fatty liver disease and your liver appears healthy although it is fatty. Sorry for the poor terminology but that is only word they use for it. No problems with your pancreas, your inflammatory markers are not elevated, your urine does not show signs of infection, all of your blood counts are stable and your CT does not show any dangerous findings in your abdomen or pelvis. Gallbladder appears normal on CT, no gall stones, without pancreatic changes, spleen is normal size and appearance, no nodules, problems with your kidneys or ureters, no free fluid or free air in your abdomen. All of your pelvic organs are unremarkable. No inflammation around your bowel throughout your colon. Please follow-up with Dr. Bravo, I am sorry for your symptoms and unfortunately we do not have a cause for them found today. I hope you start feeling better soon, at least you know now that it is not dangerous. you can use topical lidocaine patches or diclofenac gel. Continue with your Prilosec, since you have tenderness over your epigastrium in your on Prilosec already, it is okay to take it twice a day if it is helpful for this symptom. Please focus on staying hydrated, schedule follow-up and return for any new or worsening conditions. *What to do: *Please continue to take your regular medications as directed. [ ] New medication prescriptions sent to your pharmacy: [ ] [ ] New medication written as a paper prescription [ x] No new medications given *Please follow up with your primary care provider in 2-3 days, call for an appointment. Let them know you were seen in the Emergency Department and that we asked that you be seen for follow-up. We will electronically transmit a record of today's note if your PCP is in our system *If you do not have a primary care provider please contact [phone] to establish care with one of [facility] primary care providers. *Return to Emergency Department if you should have any new, worsening, or concerning symptoms, such as [fever greater than 101F, chills, worsening pain, persistent vomiting or other bothersome symptoms]. Prescriptions: No Action No Known Home Medications Referrals: Nurys Bravo MD [Primary Care Provider] - Visit Report Forms: Patient Portal/API <Marisa Forrester MD - Last Filed: 04/20/22 03:32> [facility] I was immediately available in the department for consultation throughout this patient's visit. I agree with documentation as above. Marisa Forrester MD
[2022-04-19] MEDS: diazePAM 10 MG/2 ML SYRINGE 2 MG IV (17:08)
[2022-04-19] MEDS: ONDANSETRON 4 MG/2 ML INJ IV (17:09)
[2022-04-19] MEDS: KETOROLAC 30 MG/ML VIAL 15 MG IV (17:09)
[2022-04-19] MEDS: SODIUM CHLORIDE 0.9% 1,000 ML 1000 ML IV (17:10)
[2022-04-19 17:19] LABS: Add Manual Diff / Slide Review NO; Basophils Absolute Auto 100 /uL (0-100); Basophils Percent Auto 1.1 % (0-2); Eosinophils Absolute Auto 100 /uL (0-450); Eosinophils Percent Auto 1.1 % (2-4); Hematocrit 42.7 % (36-46); Hemoglobin 14.6 g/dL (12.0-16.0); Lymphocytes Absolute Auto 3000 /uL (1100-4500); Lymphocytes Percent Auto 29.2 % (25-40); Mean Corpuscular HGB Conc 34.2 % (30-36); Mean Corpuscular Hemoglobin 30.9 PG (26-34); Mean Corpuscular Volume 90.2 fL (80-100); Monocytes Absolute Auto 700 /uL (0-900); Monocytes Percent Auto 6.9 % (3-14); Neutrophils Absolute Auto 6300 /uL (1500-7000); Neutrophils Percent Auto 61.7 % (50-75); Platelet Count 321 X10^3/uL (150-400); Red Blood Cell Count 4.73 X10^6/uL (4.0-5.2); Red Cell Distribution Width 13.6 % (11.6-14.8); White Blood Cell Count 10.2 X10^3/uL (4.5-11.0)
[2022-04-19 17:24] LABS: Lactate (Lactic Acid) 0.9 mmol/L (0.7-2.1)
[2022-04-19 17:25] LABS: Alanine Aminotransferase 44 IU/L (<35); Albumin 4.2 g/dL (3.5-5.0); Albumin Globulin Ratio 1.4 (1.0-2.8); Alkaline Phosphatase 64 U/L (38-126); Aspartate Aminotransferase 40 IU/L (14-36); BUN Creatinine Ratio 14.7 (6-22); Bilirubin Total 0.6 mg/dL (0.2-1.3); Blood Urea Nitrogen 10 mg/dL (7-17); Calcium 9.4 mg/dL (8.4-10.2); Carbon Dioxide 29 mmol/L (22-32); Chloride 104 mmol/L (98-107); Estimated Glomerular Filt Rate > 60 mL/min (>60); Globulin 3.1 g/dL (1.7-4.1); Glucose 84 mg/dL (70-100); Lipase 48 U/L (23-300); Potassium 4.2 mmol/L (3.4-5.1); Sodium 138 mmol/L (137-145); Total Protein 7.3 g/dL (6.3-8.2)
[2022-04-19 17:26] LABS: HEMOLYSIS 60 (0-50)
[2022-04-19 17:27] LABS: C-Reactive Protein Quant 0.5 mg/dL (<1.0)
[2022-04-19 17:41] LABS: Procalcitonin 0.04 ng/mL (<0.5)
[2022-04-19 17:47] LABS: Bacteria Urine Occasional (0-1); Mucus Urine 1+ (Negative); RBC Urine None Seen (0-5/HPF); Squamous Epithelial Cell Urine None Seen (0-5/HPF); WBC Urine 0-1/HPF (0-5/HPF)
[2022-04-19 19:09] LABS: Influenza A - CEPHEID Flu A NEGATIVE (NEGATIVE); Influenza B - CEPHEID Flu B NEGATIVE (NEGATIVE); Respiratory Syncytial Virus Negative (Negative)
[2022-04-19 19:11] LABS: COVID-19 CEPHEID 4-PLEX PCR Negative (Negative)
== END 2022-04-19 19:16 | disposition home or self-care (01) ==
PROVIDERS: Emergency Provider Nurse Practitioner Critical Care Medicine; Family Provider Family Medicine; PCP Family Medicine; Referring Provider Registered Nurse
DX: R10.13 Epigastric pain (principal); R10.12 Left upper quadrant pain; R11.0 Nausea; Z20.822 Contact with and (suspected) exposure to COVID-19
CPT/HCPCS: 0241U; 74177; 76700; 80053; 81003; 81015; 81025; 83605; 83690; 84145; 85025; 86140; 87086; 96361; 96374; 96375; 99283; 99284; J1885; J2405; J3360; Q9967

== ENCOUNTER → 2023-01-24 09:52 | Outpatient (CLI) | payer OTHER, SELFPAY ==
--- NOTE | 2023-01-24 10:56 | DI.RAD.S_ITS ---
PROCEDURE: XR KUB INDICATIONS: Left upper quadrant/Left flank pain, + UTI +hematuria TECHNIQUE: One view of the abdomen acquired. COMPARISON: [facility], CR, XR ACUTE ABDOMEN SERIES, 03/28/2022, 15:37. FINDINGS: Surgical changes and devices: None. Bowel: Bowel gas pattern is normal. Soft tissues: No suspicious abdominal calcifications. Visualized solid organ contours appear normal in size. Bones: No suspicious bony lesions. IMPRESSION: No acute process. Dictated by: Ahmet Navarro M.D. on 01/24/2023 at 11:32 Approved by: Ahmet Navarro M.D. on 01/24/2023 at 11:32
[2023-01-24 12:03] LABS: Add Manual Diff / Slide Review NO; Basophils Absolute Auto 100 /uL (0-100); Eosinophils Absolute Auto 100 /uL (0-450); Eosinophils Percent Auto 0.8 % (2-4); Hematocrit 40.5 % (36-46); Hemoglobin 14.1 g/dL (12.0-16.0); Lymphocytes Absolute Auto 1900 /uL (1100-4500); Lymphocytes Percent Auto 19.3 % (25-40); Mean Corpuscular HGB Conc 34.7 % (30-36); Mean Corpuscular Hemoglobin 30.6 PG (26-34); Mean Corpuscular Volume 88.3 fL (80-100); Monocytes Absolute Auto 500 /uL (0-900); Monocytes Percent Auto 5.4 % (3-14); Neutrophils Absolute Auto 7400 /uL (1500-7000); Neutrophils Percent Auto 73.5 % (50-75); Platelet Count 311 X10^3/uL (150-400); Red Blood Cell Count 4.59 X10^6/uL (4.0-5.2); Red Cell Distribution Width 13.6 % (11.6-14.8)
[2023-01-24 12:38] LABS: Alanine Aminotransferase 33 IU/L (<35); Albumin 3.9 g/dL (3.5-5.0); Albumin Globulin Ratio 1.5 (1.0-2.8); Alkaline Phosphatase 57 U/L (38-126); Aspartate Aminotransferase 30 IU/L (14-36); BUN Creatinine Ratio 14.1 (6-22); Bilirubin Total 0.3 mg/dL (0.2-1.3); Blood Urea Nitrogen 10 mg/dL (7-17); Calcium 9.4 mg/dL (8.4-10.2); Carbon Dioxide 26 mmol/L (22-32); Chloride 104 mmol/L (98-107); Estimated Glomerular Filt Rate > 60 mL/min (>60); Globulin 2.6 g/dL (1.7-4.1); Glucose 93 mg/dL (70-100); HEMOLYSIS < 15 (0-50); Lipase 127 U/L (23-300); Potassium 4.2 mmol/L (3.4-5.1); Sodium 139 mmol/L (137-145); Total Protein 6.5 g/dL (6.3-8.2)
== END ==
PROVIDERS: Family Provider Family Medicine; PCP Family Medicine; Referring Provider Student in an Organized Health Care Education/Training Program; Visit Provider Student in an Organized Health Care Education/Training Program
DX: N39.0 Urinary tract infection, site not specified (principal); R10.12 Left upper quadrant pain; R31.9 Hematuria, unspecified; R11.2 Nausea with vomiting, unspecified
CPT/HCPCS: 36415; 74018; 80053; 83690; 85025; 87086

== ENCOUNTER → 2023-02-13 14:40 | Outpatient (CLI) | payer OTHER, SELFPAY | PROVIDERS: Family Provider Family Medicine; PCP Family Medicine; Referring Provider Surgery; Visit Provider Surgery | DX: R07.9 Chest pain, unspecified (principal); R10.32 Left lower quadrant pain | CPT/HCPCS: 93005; 99213 ==

== ENCOUNTER → 2023-02-20 15:23 | Outpatient (CLI) | payer OTHER, SELFPAY ==
--- NOTE | 2023-02-20 | DI.RAD.S_ITS ---
PROCEDURE: XR RIBS LT 2V INDICATIONS: abdominal pain, left upper and lower quadrant TECHNIQUE: 2 views of the left ribs were acquired. COMPARISON: None. FINDINGS: Surgical changes and devices: None. Bones and chest wall: No fractures or dislocations. No suspicious bony lesions. Overlying soft tissues appear unremarkable. Lungs and pleura: The visualized lung appears clear. No pleural effusions or pneumothorax are visible. IMPRESSION: No visualized acute fracture or dislocation. However, if clinical concern and/or pain persist, short interval imaging followup in 7-10 days is recommended, as occult injury cannot be definitively excluded. Dictated by: Soniya Oneil M.D. on 02/21/2023 at 15:48 Approved by: Soniya Oneil M.D. on 02/21/2023 at 16:09
--- NOTE | 2023-02-20 | DI.RAD.S_ITS ---
PROCEDURE: XR CHEST 2V INDICATIONS: LATERAL CHEST TECHNIQUE: 2 views of the chest were acquired. COMPARISON: [facility], , XR CHEST 2V, 02/17/2020, 20:32. FINDINGS: Surgical changes and devices: None. Lungs and pleura: Lungs are clear. No pleural effusions or pneumothorax. Mediastinum: Mediastinal contours are normal. Heart size is normal. Bones and chest wall: No suspicious bony abnormalities. Soft tissues appear unremarkable. IMPRESSION: No acute cardiopulmonary abnormality is seen. Dictated by: Soniya Oneil M.D. on 02/21/2023 at 16:09 Approved by: Soniya Oneil M.D. on 02/21/2023 at 16:10
== END ==
PROVIDERS: Family Provider Family Medicine; PCP Family Medicine; Referring Provider Family Medicine; Visit Provider Family Medicine
DX: R10.12 Left upper quadrant pain (principal); R10.32 Left lower quadrant pain
CPT/HCPCS: 71046; 71100

== ENCOUNTER → 2023-03-13 12:57 | Outpatient (CLI) | payer OTHER, SELFPAY ==
--- NOTE | 2023-03-13 12:59 | DI.US.S_ITS ---
PROCEDURE: US ABDOMEN COMPLETE INDICATIONS: ABDOMINAL PAIN/LEFT UPPER QUADRANT TECHNIQUE: Real-time scanning was performed of the abdominal and retroperitoneal organs, with image documentation. COMPARISON: [facility], CT, CT ABDOMEN PELVIS W CON, 04/19/2022, 16:45. [facility], US, US ABDOMEN COMPLETE, 04/19/2022, 17:48. FINDINGS: Liver: The liver demonstrates normal size. The liver demonstrates generalized mildly increased echogenicity. This decreases ultrasound sensitivity for detection of hepatic masses. Gallbladder: No findings of gallstones or sludge are seen. The gallbladder wall is not thickened, measuring 3 mm or less. No specific pericholecystic fluid is seen. The sonographic Land sign is negative. Biliary ducts: Intrahepatic bile ducts are non-dilated. Extrahepatic bile duct caliber measures 4 mm. Normal is 6-7 mm or less in diameter, or 10 mm or less post-cholecystectomy. Pancreas: Visualized portions of the pancreas are sonographically normal. Spleen: Spleen is normal in size and homogeneous in echotexture. Kidneys: Kidneys are normal in size and echotexture. Right kidney measures 11.6 cm long; left kidney measures 9.6 cm long. No hydronephrosis or nephrolithiasis. No solid masses. Aorta: Visualized aorta is normal in caliber at less than 3 cm. Iliacs: Not well seen, obscured by overlying bowel gas. IVC: Intrahepatic inferior vena cava is patent. Miscellaneous: No free abdominal fluid. This study is limited by body habitus. IMPRESSION: Limited quality study, without a cause of left upper quadrant pain identified. The spleen demonstrates a normal sonographic appearance. The gallbladder demonstrates a normal sonographic appearance. No biliary dilatation is seen. Dictated by: Emil Segundo M.D. on 03/13/2023 at 13:25 Approved by: Emil Segundo M.D. on 03/13/2023 at 13:27
== END ==
PROVIDERS: Family Provider Family Medicine; PCP Family Medicine; Referring Provider Family Medicine; Visit Provider Family Medicine
DX: R10.12 Left upper quadrant pain (principal)
CPT/HCPCS: 76700

== ENCOUNTER 2023-03-28 11:35 | Day surgery (SDC) | payer OTHER, SELFPAY ==
--- NOTE | 2023-03-28 | PATH_ITS ---
[facility] Accession Number: [id number] No. of containers..02 Tissue . 01 Material submitted: . PART A: duodenum - DUODENUM PART B: stomach - ANTRUM . 01 Diagnosis: A. Duodenum, Biopsy: Duodenal mucosa with no diagnostic abnormality. Negative for active inflammation, features of sprue, dysplasia, or malignancy. . B. Stomach, Biopsy: Antral mucosa with mild chronic gastritis. Negative for Helicobacter organisms by immunohistochemistry. Negative for intestinal metaplasia. Negative for dysplasia and malignancy. [facility] 04/04/2023 1116 Local . 01 Electronically signed: . Tiara Vizcarra MD, Pathologist NPI- [id number] . 01 Gross description: . Part A: DUODENUM: Received in formalin is 2 fragment(s) of munson, soft tissue measuring 0.3 x 0.2 x 0.1 cm to 0.2 x 0.2 x 0.1 cm submitted entirely in 1 cassette(s) Part B: ANTRUM: Received in formalin is 2 fragment(s) of munson, soft tissue measuring 0.3 x 0.2 x 0.1 cm to 0.2 x 0.2 x 0.1 cm submitted entirely in 1 cassette(s) /MARCIE 03/29/2023 0501 Local . 01 Microscopic: . B. An immunohistochemical stain was performed to evaluate for Helicobacter organisms and is negative. The control stain showed appropriate reactivity. . . * This test was developed and its performance characteristics determined by [facility]. It has not been cleared or approved by the U.S. Food and Drug Administration. The FDA has determined that such clearance or approval is not necessary. This test is used for clinical purposes. It should not be regarded as investigational or for research. . 01 Pathologist provided ICD-10: R13.10 . 01 CPT . 212292, 446665, [id number] Specimen Comment: A courtesy copy of this report has been sent to [phone] Performed at: 01 [facility] [address] [place] [address], [place], [place] [id number] MD Carl Martinez MD Phone: [phone]
[2023-03-28 12:15] VITALS: BMI 41.1
--- NOTE | 2023-03-28 12:15 | P.HP_ITS ---
History of Present Illness History of Present Illness Date Patient Seen: 03/28/23 Time Patient Seen: 12:16 Chief complaint: EGD & Colonoscopy w/poss bx's Narrative: Vivian is a 38 year old woman with abdominal pain. See office note from January for details. [facility], [facility] Medical History (Updated 02/13/23 @ 13:42 by Jayde Arias RN) Anxiety and depression OCD (obsessive compulsive disorder) Anxiety Twin gestation in first trimester Threatened miscarriage Social History Smoking Status: Current some day smoker Meds Home Medications and Allergies Home Medications Medication Instructions Recorded Confirmed Type gabapentin 100 mg tablet 100 mg PO BEDTIME 03/28/23 03/28/23 History Allergies Allergy/AdvReac Type Severity Reaction Status Date / Time amoxicillin [AMOXICILLIN] Allergy Unknown Unverified 02/13/23 13:38 Exam Const General: No acute distress Resp Effort & Inspection: normal respiratory effort Assessment & Plan Assessment and plan (1) Left lower quadrant abdominal pain: Status: Acute Plan We reviewed the risks and benefits of EGD and colonoscopy for her abdominal pain and she would like to proceed.
[2023-03-28 12:31] VITALS: BP 138/90; PULSE 61; RESP 16; TEMP 36.4; O2SAT 96
--- NOTE | 2023-03-28 14:20 | PM.OP.EC ---
Operative Date/Time/Diagnoses Date of procedure: 03/28/23 Time of procedure: 14:20 Pre-op diagnosis: Abdominal pain Post-op diagnosis: same Procedure & Clinicians Study performed: EGD and colonoscopy Same procedure as scheduled: Yes Surgeon: Evan Newsome Procedure Notes Procedure in detail: Surgeon: Evan Newsome MD Anesthesia: Perri Lemos CRNA Procedure in detail: A timeout was performed. A bite blocked was placed and monitors were attached to the patient. The patient was positioned in the left lateral decubitus position. Sedation was administered. Once the patient was sedated the endoscope was inserted through the bite block and passed through the esophagus and stomach and into the duodenum. No abnormalities were seen. Random biopsies were taken from the duodenal. The duodenal bulb also appeared normal. We then withdrew the scope into the stomach. There were some tiny ulcers in distal stomach. Random biopsies were taken from antrum. The endoscope was retroflexed and a small hiatal hernia was noted. The endoscope was straightned and withdrawn into the esophagus. No other abnormalities were seen. Findings: Small ulcers in the distal stomach and a small hiatal hernia Next we repositioned the patient for a colonoscopy. A digital rectal exam was performed and was normal. The colonoscope was inserted and advanced to the cecum. The appendiceal orifice was identified and photographed. The scope was slowly withdrawn over greater than 6 minutes. No abnormalities were found throughout the colon. The scope was retroflexed in the rectum and no other abnormalities were seen. Findings: Normal colon EBL: 5 mL Scope withdrawal time: 6 minutes Sedation minutes: 21 minutes Post-procedure Recommendations: Colonscopy in 10 years Disposition: PACU
[2023-03-28 14:22] VITALS: BP 126/75; PULSE 73; RESP 35; TEMP 37; O2SAT 97
[2023-03-28 14:26] VITALS: BP 123/78; PULSE 74; RESP 19; TEMP 36.8; O2SAT 98
[2023-03-28 14:31] VITALS: BP 122/74; PULSE 74; RESP 16; TEMP 36.2; O2SAT 98
[2023-03-28 14:41] VITALS: BP 126/70; PULSE 77; RESP 16; TEMP 36.2; O2SAT 98
== END 2023-03-28 14:49 | disposition home or self-care (01) ==
PROVIDERS: Family Provider Family Medicine; PCP Family Medicine; Referring Provider Surgery; Visit Provider Surgery
PROC: 0DJ08ZZ Inspection of Upper Intestinal Tract, Via Natural or Artificial Opening Endoscopic (ICD-10-PCS; CPT 43235; principal; 2023-03-28 13:15)
PROC: 0DJD8ZZ Inspection of Lower Intestinal Tract, Via Natural or Artificial Opening Endoscopic (ICD-10-PCS; CPT 45378; 2023-03-28 13:15)
DX: R10.32 Left lower quadrant pain (principal); K44.9 Diaphragmatic hernia without obstruction or gangrene; K25.9 Gastric ulcer, unspecified as acute or chronic, without hemorrhage or perforation; K29.50 Unspecified chronic gastritis without bleeding
CPT/HCPCS: 45378; 43239; J2704

== ENCOUNTER 2023-04-28 23:49 | Emergency (ER) | payer OTHER, SELFPAY ==
[2023-04-29] VITALS (7 sets, daily range): BP systolic 137–167; BP diastolic 62–86; PULSE 66–100; RESP 22; TEMP 37.1; O2SAT 97–98; BMI 34.3
--- NOTE | 2023-04-29 00:08 | DI.RAD.S_ITS ---
PROCEDURE: XR ANKLE RT MIN 3V INDICATIONS: swollen/pain TECHNIQUE: 3 views of the ankle were acquired. COMPARISON: None. FINDINGS: Bones: No fractures or dislocations. Ankle mortise is normally aligned. No suspicious bony lesions. Prominent plantar calcaneal enthesophyte. Soft tissues: No tibiotalar joint effusion. Achilles tendon appears normal. Moderate soft tissue swelling overlying the lateral malleolus. IMPRESSION: Moderate lateral malleolar soft tissue edema. No underlying fracture or dislocation. Prominent plantar calcaneal enthesophyte. If there is persistent clinical concern for occult fracture given adequate mechanism of injury, consider repeat imaging in 10-14 days. Dictated by: Chadwick Barrera M.D. on 04/29/2023 at 0:22 Approved by: Chadwick Barrera M.D. on 04/29/2023 at 0:24
--- NOTE | 2023-04-29 00:38 | ED_ITS ---
HPI - Extremity Injury (Lower) General Chief Complaint: Extremity Injury, Lower Stated Complaint: fell and hurt rt foot Time Seen by Provider: 04/29/23 00:35 Source: patient Mode of arrival: Wheelchair History of Present Illness HPI Narrative: 38-year-old female with a left ankle injury after rolling her ankle earlier tonight. Reports pain is primarily in the midfoot. Has been able to tolerate limited weight-bearing since the injury. Related Data Home Medications Medication Instructions Recorded Confirmed gabapentin 100 mg tablet 100 mg PO BEDTIME 03/28/23 03/28/23 Allergies Allergy/AdvReac Type Severity Reaction Status Date / Time amoxicillin [AMOXICILLIN] Allergy Unknown Unverified 02/13/23 13:38 Patient History Medical History (Updated 04/29/23 @ 01:47 by Thom Handley MD) Anxiety and depression OCD (obsessive compulsive disorder) Anxiety Twin gestation in first trimester Threatened miscarriage Social History Smoking Status: Current some day smoker alcohol intake: never Smoking Status: Current some day smoker alcohol intake frequency: other Substance Use Type: marijuana Exam Initial Vital Signs Initial Vital Signs: Vital Signs Temperature 98.7 F 04/29/23 00:00 Pulse Rate 100 H 04/29/23 00:00 Respiratory Rate 22 04/29/23 00:00 Blood Pressure 167/82 H 04/29/23 00:00 Pulse Oximetry 98 04/29/23 00:00 Oxygen Delivery Method Room Air 04/29/23 00:00 Const General: No acute distress Resp Effort & Inspection: normal respiratory effort Neuro General: patient awake and patient oriented x3 Extrem Other: No deformity of the right foot or ankle. She has some mild tenderness over the right lateral malleolus, she is a bit tender over the dorsum of the midfoot primarily medially. She has intact light touch sensation and capillary refill. Course Orders Ordered: ED Orders 04/29/23 00:08 XR ankle RT min 3V Stat 04/29/23 00:45 XR foot RT min 3V Stat Radiology read of right foot x-ray: Mild, diffuse soft tissue swelling of the right foot without underlying fracture or dislocation. Prominent plantar calcaneal enthesophyte. If there is persistent clinical concern for occult fracture given adequate mech anism of injury, consider repeat imaging in 10-14 days. I independently reviewed this film, there was no bony abnormality appreciated. Radiology read of right ankle x-ray: Moderate lateral malleolar soft tissue edema. No underlying fracture or dislocation. Prominent plantar calcaneal enthesophyte. If there is persistent clinical concern for occult fracture given adequate mechanism of injury, consider repeat imaging in 10-14 days I independently reviewed these images, no bony abnormality seen Vital Signs Vital signs: Vital Signs - 8 hr 04/29/23 00:00 04/29/23 00:09 04/29/23 01:04 Temperature 98.7 F Pulse Rate 100 H 75 Pulse Rate [Right] 100 H Respiratory Rate 22 Blood Pressure 167/82 H Pulse Oximetry 98 98 Oxygen Delivery Method Room Air 04/29/23 01:05 04/29/23 01:05 04/29/23 01:30 Temperature Pulse Rate 75 66 Pulse Rate [Right] Respiratory Rate Blood Pressure 137/62 Pulse Oximetry 97 98 Oxygen Delivery Method 04/29/23 02:00 04/29/23 02:02 04/29/23 02:02 Temperature Pulse Rate 76 79 Pulse Rate [Right] Respiratory Rate Blood Pressure 143/86 H Pulse Oximetry 97 98 Oxygen Delivery Method MDM - Extremity Injury (Lower) Imaging Data Extremity x-ray #1: My Impression: Right ankle, independent review no acute fracture or dislocation Extremity x-ray #2: My Impression: Right foot, no acute bony abnormality MDM Narrative Medical decision making narrative: 38-year-old female with a right ankle and foot injury after a ground level fall. Foot seemed to be the more painful location, no fractures or dislocation seen on x-ray circulation is intact, recommended she be nonweightbearing until she can weightbear without pain she was provided with crutches and an Giuliano wrap. Recommended ibuprofen and/or acetaminophen as needed for pain. Discharge Plan Departure Patient Disposition: Home Clinical Impression: Foot sprain Instructions: How to Use Crutches Activity Restrictions/Additional Instructions: Use crutches until able to weight bear without pain on your right foot. An Giuliano wrap will help decrease swelling, apply this during the day when you are up, you can also apply ice frequently keeping ice from direct contact with her skin and removing after 10-15 minutes. You can use ibuprofen and/or acetaminophen as needed for pain. Make an appointment to follow up soon with her primary care provider for a recheck. Prescriptions: No Action gabapentin 100 mg Tablet 100 mg PO BEDTIME Referrals: Nurys Bravo MD [Primary Care Provider] - Stand Alone Forms: Patient Portal/API
--- NOTE | 2023-04-29 00:45 | DI.RAD.S_ITS ---
PROCEDURE: XR FOOT RT MIN 3V INDICATIONS: foot pain TECHNIQUE: 3 views of the foot were acquired. COMPARISON: [facility], CR, XR ANKLE RT MIN 3V, 04/29/2023, 0:10. FINDINGS: Bones: No fractures or dislocations. No suspicious bony lesions. Prominent plantar calcaneal enthesophyte. Soft tissues: Mild diffuse soft tissue swelling of the right foot. No tibiotalar joint effusion. Achilles tendon appears normal. IMPRESSION: Mild, diffuse soft tissue swelling of the right foot without underlying fracture or dislocation. Prominent plantar calcaneal enthesophyte. If there is persistent clinical concern for occult fracture given adequate mechanism of injury, consider repeat imaging in 10-14 days. Dictated by: Chadwick Barrera M.D. on 04/29/2023 at 1:24 Approved by: Chadwick Barrera M.D. on 04/29/2023 at 1:25
== END 2023-04-29 02:18 | disposition home or self-care (01) ==
PROVIDERS: Emergency Provider Emergency Medicine; Family Provider Family Medicine; PCP Family Medicine
DX: S93.601A Unspecified sprain of right foot, initial encounter (principal); X50.1XXA Overexertion from prolonged static or awkward postures, initial encounter
CPT/HCPCS: 73610; 73630; 99283

== ENCOUNTER → 2023-11-08 15:12 | Outpatient (CLI) | payer OTHER, SELFPAY ==
[2023-11-08 16:06] LABS: Add Manual Diff / Slide Review NO; Basophils Absolute Auto 100 /uL (0-100); Eosinophils Absolute Auto 100 /uL (0-450); Eosinophils Percent Auto 1.4 % (2-4); Hematocrit 42.6 % (36-46); Hemoglobin 14.5 g/dL (12.0-16.0); Lymphocytes Absolute Auto 2500 /uL (1100-4500); Lymphocytes Percent Auto 25.3 % (25-40); Mean Corpuscular HGB Conc 34.1 % (30-36); Mean Corpuscular Hemoglobin 30.7 PG (26-34); Monocytes Absolute Auto 600 /uL (0-900); Monocytes Percent Auto 5.9 % (3-14); Neutrophils Absolute Auto 6700 /uL (1500-7000); Neutrophils Percent Auto 66.4 % (50-75); Platelet Count 320 X10^3/uL (150-400); Red Blood Cell Count 4.73 X10^6/uL (4.0-5.2); Red Cell Distribution Width 13.5 % (11.6-14.8)
[2023-11-08 16:44] LABS: Alanine Aminotransferase 38 IU/L (<35); Albumin 4.2 g/dL (3.5-5.0); Albumin Globulin Ratio 1.4 (1.0-2.8); Alkaline Phosphatase 70 U/L (38-126); Amylase 65 U/L (30-110); Aspartate Aminotransferase 58 IU/L (14-36); BUN Creatinine Ratio 20.5 (6-22); Bilirubin Total 0.6 mg/dL (0.2-1.3); Blood Urea Nitrogen 15 mg/dL (7-17); Calcium 9.3 mg/dL (8.4-10.2); Carbon Dioxide 30 mmol/L (22-32); Chloride 105 mmol/L (98-107); Estimated Glomerular Filt Rate > 60 mL/min (>60); Glucose 83 mg/dL (70-100); HEMOLYSIS 16 (0-50); Lipase 63 U/L (23-300); Potassium 3.9 mmol/L (3.4-5.1); Sodium 138 mmol/L (137-145); Total Protein 7.2 g/dL (6.3-8.2)
[2023-11-08 17:16] LABS: Thyroid Stimulating Hormone 3.79 uIU/mL (0.47-4.68)
== END ==
PROVIDERS: Family Provider Family Medicine; PCP Family Medicine; Referring Provider Family Medicine; Visit Provider Family Medicine
DX: Z13.0 Encounter for screening for diseases of the blood and blood-forming organs and certain disorders involving the immune mechanism (principal); R10.84 Generalized abdominal pain; K25.3 Acute gastric ulcer without hemorrhage or perforation
CPT/HCPCS: 36415; 80053; 82150; 82784; 83516; 83690; 84443; 85025

== ENCOUNTER → 2023-11-27 16:46 | Outpatient (CLI) | payer OTHER, SELFPAY ==
--- NOTE | 2023-11-27 16:47 | DI.US.S_ITS ---
PROCEDURE: US ABDOMEN COMPLETE INDICATIONS: ABD PAIN / ACUTE GASTRIC ULCER / ELEVATED LFT'S TECHNIQUE: Real-time scanning was performed of the abdominal and retroperitoneal organs, with image documentation. COMPARISON: [facility], , US ABDOMEN COMPLETE, 03/13/2023, 13:19. FINDINGS: Liver: Liver is normal in size and increased in echogenicity. Gallbladder: Normal in appearance. No gallstones or gallbladder wall thickening. Biliary ducts: Intrahepatic bile ducts are non-dilated. Extrahepatic bile duct caliber measures 3 mm. Normal is 6-7 mm or less in diameter, or 10 mm or less post-cholecystectomy. Pancreas: Not well seen secondary to overlying bowel gas. Spleen: Spleen is normal in size and homogeneous in echotexture. Kidneys: Kidneys are normal in size and echotexture. Right kidney measures 8.9 cm long; left kidney measures 11.7 cm long. No hydronephrosis or nephrolithiasis. No solid masses. Aorta: Visualized aorta is normal in caliber at less than 3 cm. Iliacs: Proximal common iliac arteries are normal in caliber at less than 2.5 cm. IVC: Intrahepatic inferior vena cava is patent. Miscellaneous: No free abdominal fluid. IMPRESSION: 1. No cause for patient's pain is identified. 2. The liver is increased in echogenicity, most consistent with hepatic steatosis. Dictated by: Tushar Browning M.D. on 11/28/2023 at 9:51 Approved by: Tushar Browning M.D. on 11/28/2023 at 9:52
== END ==
LOC: US 16:47
PROVIDERS: Family Provider Family Medicine; PCP Family Medicine; Referring Provider Family Medicine; Visit Provider Family Medicine
DX: K25.3 Acute gastric ulcer without hemorrhage or perforation (principal); R10.84 Generalized abdominal pain
CPT/HCPCS: 76700

== ENCOUNTER → 2024-01-24 16:05 | Outpatient (CLI) | payer OTHER, SELFPAY ==
[2024-01-24 17:27] LABS: Add Manual Diff / Slide Review NO; Basophils Absolute Auto 100 /uL (0-100); Basophils Percent Auto 0.6 % (0-2); Eosinophils Absolute Auto 100 /uL (0-450); Eosinophils Percent Auto 0.9 % (2-4); Hematocrit 39.8 % (36-46); Hemoglobin 13.8 g/dL (12.0-16.0); Lymphocytes Absolute Auto 2700 /uL (1100-4500); Lymphocytes Percent Auto 19.8 % (25-40); Mean Corpuscular HGB Conc 34.7 % (30-36); Mean Corpuscular Hemoglobin 31.3 PG (26-34); Mean Corpuscular Volume 90.2 fL (80-100); Monocytes Absolute Auto 800 /uL (0-900); Monocytes Percent Auto 5.8 % (3-14); Neutrophils Absolute Auto 9900 /uL (1500-7000); Neutrophils Percent Auto 72.9 % (50-75); Platelet Count 322 X10^3/uL (150-400); Red Blood Cell Count 4.41 X10^6/uL (4.0-5.2); Red Cell Distribution Width 13.7 % (11.6-14.8); White Blood Cell Count 13.6 X10^3/uL (4.5-11.0)
[2024-01-24 17:33] LABS: Appearance Urine UA CLEAR; Bilirubin Urine UA NEGATIVE (NEGATIVE); Color Urine UA YELLOW; Glucose Urine UA NEGATIVE (Negative); Ketones Urine UA NEGATIVE (NEGATIVE); Leukocyte Esterase Urine UA NEGATIVE (NEGATIVE); Nitrite Urine UA NEGATIVE (Negative); Occult Blood Urine UA NEGATIVE (Negative); Protein Urine UA NEGATIVE (Negative); Specific Gravity Urine UA 1.025 (1.000-1.035); Urobilinogen Urine UA 0.2 E.U./dL (0.2)
[2024-01-24 17:34] LABS: pH Urine UA 5.5 (4.5-8.0)
[2024-01-25 06:12] LABS: RPR Screen Non Reactive (Non Reactive)
[2024-01-25 07:36] LABS: Varicella IgG Antibody 3684 index (Immune >165)
[2024-01-27 19:03] LABS: HIV 1 & 2 Ab/Ag 4th Gen Combo NEGATIVE (NEGATIVE); Hep C Virus Ab w/Reflex Quant NEGATIVE s/c (NEGATIVE); Hepatitis B Surface Antigen NEGATIVE s/c (NEGATIVE); Rubella Antibody IgG 26.6 IU/mL (>15)
== END ==
PROVIDERS: PCP Family Medicine; Referring Provider Family Medicine; Visit Provider Family Medicine
DX: Z34.80 Encounter for supervision of other normal pregnancy, unspecified trimester (principal); E66.01 Morbid (severe) obesity due to excess calories; Z68.41 Body mass index [BMI] 40.0-44.9, adult
CPT/HCPCS: 36415; 80055; 81003; 83036; 86787; 86803; 86850; 86900; 86901; 87086; 87389

== ENCOUNTER → 2024-02-12 16:14 | Outpatient (CLI) | payer OTHER, SELFPAY ==
[2024-02-12 17:22] LABS: Natera Collection Specimen Collected
== END ==
PROVIDERS: PCP Family Medicine; Referring Provider Family Medicine; Visit Provider Family Medicine
DX: O09.511 Supervision of elderly primigravida, first trimester (principal)
CPT/HCPCS: 36415

== ENCOUNTER → 2024-04-03 10:52 | Outpatient (CLI) | payer OTHER, SELFPAY ==
--- NOTE | 2024-04-03 10:53 | DI.US.S_ITS ---
PROCEDURE: US OB >= 14 WEEKS FETUS INDICATIONS: anatomy OUTSIDE/PRIOR DATING DATA: Last menstrual period (LMP): 11/08/2023 LMP-based estimated date of delivery (FABIAN): 08/07/2024. First dating scan (date and location): 01/01/2024. Estimated date of delivery (FABIAN) from first dating scan: 08/14/2024. TECHNIQUE: Real-time scanning was performed of the fetus, with image documentation and biometric measurements. Endovaginal scanning: No COMPARISON: None. FINDINGS: General: A single living intrauterine gestation is present. Presentation: Breech. Placenta: Placental position is anterior , without previa. Amniotic fluid index: 15.5 cm, normal range is 5-24 cm. Single deepest vertical pocket is 5 cm. heart rate: 135 beats per minute. Maternal cervical canal: 5.8 cm long. Normal lower limit is 2.5 cm. biometrics: Biparietal diameter: 21 weeks 5 days Head circumference: 22 weeks Abdominal circumference: 22 weeks 3 days Femur length: 21 weeks 1 day Clinically estimated gestational age: 21 weeks 0 days Composite gestational age from present scan: 21 weeks 6 days Estimated weight and percentile: 455 g, 87th percentile Anatomic survey: Neuro: Ventricles are non-dilated at less than 10 mm. Cisterna magna is normal at 3-11 mm. Cerebellum is normal in size and morphology. Nuchal skin fold: Normal at less than 6 mm between 14-21 weeks gestational age. Face: Nose and lips, facial profile are normal. Spine: No evidence for spina bifida. Heart: Suboptimally visualized. Diaphragm: Diaphragm is intact. Stomach: Left-sided stomach is present. Kidneys: No hydronephrosis. Normal is less than 5 mm in 2nd trimester, less than 7 mm in 3rd trimester. Cord: 3-vessel cord has orthotopic insertion. Bladder: Normal in size. Extremities: All 4 extremities identified. IMPRESSION: 1. Single living IUP redemonstrated and interval growth is upper limits of normal. 2. Nuchal thickness upper limits of normal and the heart is suboptimally visualized. Short-term follow-up recommended. We strive to produce accurate, complete, and clear reports of imaging services. To assist us in improving patient care, this report was composed using standard report templates and voice recognition software. Therefore, it may contain abnormal punctuation, insertions and/or omissions. Occasional wrong-word or sound-alike substitutions may occur. Though we review the report and make efforts to correct it, we do recommend that the report be read carefully in proper context to recognize any text inaccuracies. Dictated by: Macario DE LEÓN Interpreted: Yarelis Ta MD on 04/03/2024 at 12:48 Transcribed by: BELLA on 04/03/2024 at 12:51 Approved by: Yarelis Ta MD, PhD on 04/08/2024 at 11:19
== END ==
PROVIDERS: PCP Family Medicine; Referring Provider Family Medicine; Visit Provider Family Medicine
DX: Z34.82 Encounter for supervision of other normal pregnancy, second trimester (principal); Z3A.21 21 weeks gestation of pregnancy
CPT/HCPCS: 76811

== ENCOUNTER → 2024-05-11 14:40 | Outpatient (CLI) | payer OTHER, SELFPAY ==
[2024-05-11 16:51] LABS: Add Manual Diff / Slide Review NO; Basophils Absolute Auto 0 /uL (0-100); Basophils Percent Auto 0.3 % (0-2); Eosinophils Absolute Auto 200 /uL (0-450); Eosinophils Percent Auto 1.9 % (2-4); Hematocrit 36.7 % (36-46); Hemoglobin 12.3 g/dL (12.0-16.0); Lymphocytes Absolute Auto 2200 /uL (1100-4500); Lymphocytes Percent Auto 19.5 % (25-40); Mean Corpuscular HGB Conc 33.4 % (30-36); Mean Corpuscular Volume 89.9 fL (80-100); Monocytes Absolute Auto 600 /uL (0-900); Monocytes Percent Auto 5.5 % (3-14); Neutrophils Absolute Auto 8400 /uL (1500-7000); Neutrophils Percent Auto 72.8 % (50-75); Platelet Count 318 X10^3/uL (150-400); Red Blood Cell Count 4.08 X10^6/uL (4.0-5.2); Red Cell Distribution Width 12.9 % (11.6-14.8); White Blood Cell Count 11.5 X10^3/uL (4.5-11.0)
[2024-05-11 17:49] LABS: GTT (PREG) 1 Hour PP 50gm Dose 132 mg/dL (76-139)
== END ==
PROVIDERS: PCP Family Medicine; Referring Provider Family Medicine; Visit Provider Family Medicine
DX: Z34.80 Encounter for supervision of other normal pregnancy, unspecified trimester (principal)
CPT/HCPCS: 36415; 82950; 85025

== ENCOUNTER → 2024-06-04 14:57 | Outpatient (CLI) | payer OTHER, SELFPAY ==
--- NOTE | 2024-06-04 14:58 | DI.US.S_ITS ---
PROCEDURE: US OB FOLLOW UP INDICATIONS: structures on anatomy u/s OUTSIDE/PRIOR DATING DATA: Last menstrual period (LMP): 11/08/2023. LMP-based estimated date of delivery (FABIAN): 08/07/2024. First dating scan (date and location): 01/01/2024. Estimated date of delivery (FABIAN) from first dating scan: 08/14/2024. Working FABIAN TECHNIQUE: Real-time scanning was performed of the fetus, with image documentation. COMPARISON: [facility], , OB >= 14 WEEKS FETUS, 04/03/2024, 11:08. FINDINGS: A single living intrauterine gestation is present. Presentation: Vertex. Placenta: Placental position is anterior, without previa. Amniotic fluid index: 16.8 cm, normal range is 5-24 cm. Single deepest vertical pocket is 5.3 cm. heart rate: 137 beats per minute. Maternal cervical canal: Not seen cm long. Clinically estimated gestational age: 29 weeks and 6 days The heart is again not well seen. IMPRESSION: Living intrauterine gestation. Normal YAMILEX. The heart is again not well seen. Dictated by: Tico Patton M.D. on 06/04/2024 at 16:33 Approved by: Tico Patton M.D. on 06/04/2024 at 16:35
== END ==
LOC: US 14:58
PROVIDERS: PCP Family Medicine; Referring Provider Family Medicine; Visit Provider Family Medicine
DX: Z34.83 Encounter for supervision of other normal pregnancy, third trimester (principal); Z3A.29 29 weeks gestation of pregnancy
CPT/HCPCS: 76816

== ENCOUNTER → 2024-07-22 15:54 | Outpatient (CLI) | payer OTHER, SELFPAY ==
[2024-07-23 15:48] LABS: Strep Grp B PCR POS for Grp B Strep
== END ==
PROVIDERS: PCP Family Medicine; Visit Provider Family Medicine
DX: Z34.80 Encounter for supervision of other normal pregnancy, unspecified trimester (principal)
CPT/HCPCS: 87081; 87653

== ENCOUNTER → 2024-07-23 13:37 | Outpatient (CLI) | payer OTHER, SELFPAY ==
--- NOTE | 2024-07-23 13:39 | DI.US.S_ITS ---
PROCEDURE: US OB FOLLOW UP INDICATIONS: HEART VIEWS NOT SEEN ON ANATOMY - FOLLOW UP OUTSIDE/PRIOR DATING DATA: Last menstrual period (LMP): 11/08/2023. LMP-based estimated date of delivery (FABIAN): 08/07/2024. First dating scan (date and location): 01/01/2024. Estimated date of delivery (FABIAN) from first dating scan: 08/14/2024. The calculations are made using the ultrasound FABIAN of 08/06/2024. TECHNIQUE: Real-time scanning was performed of the fetus, with image documentation. COMPARISON: [facility], , OB FOLLOW UP, 06/04/2024, 15:16. FINDINGS: A single living intrauterine gestation is present. Presentation: Vertex. Placenta: Placental position is anterior, without previa. Amniotic fluid index: 15.6 cm, normal range is 5-24 cm. Single deepest vertical pocket is 6.9 cm. heart rate: 146 beats per minute. Maternal cervical canal: Not assessed Estimated gestational age from initial scan: 36 weeks 6 days Right ventricular outflow tract is partially visualized appears grossly unremarkable.. IMPRESSION: Single live intrauterine with gestational age today of 36 weeks 6 days. Partially visualized right ventricular outflow tract is grossly unremarkable. Dictated by: Soniya Oneil M.D. on 07/24/2024 at 11:56 Approved by: Soniya Oneil M.D. on 07/24/2024 at 11:58
== END ==
LOC: US 13:38
PROVIDERS: PCP Family Medicine; Referring Provider Family Medicine; Visit Provider Family Medicine
DX: Z34.83 Encounter for supervision of other normal pregnancy, third trimester (principal); Z3A.36 36 weeks gestation of pregnancy
CPT/HCPCS: 76816

== ENCOUNTER → 2024-07-24 14:00 | Outpatient (CLI) | payer OTHER, SELFPAY ==
--- NOTE | 2024-07-27 14:00 | DIET.CONS ---
Dietary Consultation Note Admission Date: Assessment: 39 y F referred to dietitian for E66.01 - Morbid (severe) obesity due to excess calories, Z34.93 - Encounter for supervision of normal , unspecified, third trimester, Z68.41 - Body mass index [BMI] 40.0-44.9, adult Vivian reports having had about 40 lb weight gain during and concern for having BMI >50 at delivery. 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 Strongly prefers to give at . Currently BMI is 49.8. Reports frustration in trying to keep BMI <50. 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 With concern for weight, has been eating ice chips when hungry between meals. Expresses concern that in trying to keep BMI <50 she is restricting too much. Hx of restricting food and overeating when teenager. Walking for 20-30 minutes 3x/d Nutrition Diagnosis: Food and nutrition related knowledge deficit r/t concern for nutrition/weight management during aeb pt assessment/questions regarding dietary and activity patterns Interventions: -Encouraged balanced meals and snacks with good fiber sources and protein sources, provided handout of examples -Discussed balanced snack options to have when hungry (celery and pb, grapes and cheese, hummus and carrots, etc) -Physical activity -Educ on label reading for fiber, saturated fat, sodium, and added sugars Goal: Add 20 minutes of walking on treadmill additional 3-4x/wk for goal of 150 minutes/wk Pair snacks and meals with good fiber source and protein source Have a balanced snack when hungry between meals Monitoring/Evaluations: f/u check in 1 wk Electronically Signed by: Kellie Verdugo 07/27/24 14:00 Clinical Dietitian [address] [address]
== END ==
PROVIDERS: PCP Family Medicine; Referring Provider Family Medicine
DX: O99.213 Obesity complicating pregnancy, third trimester (principal); E66.01 Morbid (severe) obesity due to excess calories; Z71.3 Dietary counseling and surveillance; Z3A.37 37 weeks gestation of pregnancy
CPT/HCPCS: 97802

== ENCOUNTER 2024-08-05 15:17 | Inpatient (IN) | payer OTHER, SELFPAY ==
--- NOTE | 2024-08-05 15:26 | DI.US.S_ITS ---
PROCEDURE: US OB LIMITED INDICATIONS: GESTATIONAL HYPERTENSION. YAMILEX AND GROWTH. OUTSIDE/PRIOR DATING DATA: Last menstrual period (LMP): 11/08/2023. LMP-based estimated date of delivery (FABIAN): 08/07/2024. First dating scan (date and location): 01/01/2024. Estimated date of delivery (FABIAN) from first dating scan: 08/14/2024. The calculations are made using the ultrasound FABIAN of 08/14/2024. TECHNIQUE: Real-time scanning was performed of the fetus, with image documentation and biometric measurements. Endovaginal scanning: Not performed COMPARISON: [facility], , OB FOLLOW UP, 07/23/2024, 13:52. FINDINGS: General: A single living intrauterine gestation is present. Presentation: Vertex. Placenta: Placental position is anterior, without previa. Amniotic fluid index: 12.6 cm, normal range is 5-24 cm. Single deepest vertical pocket is 5.1 cm. heart rate: 139 beats per minute. Maternal cervical canal: Not seen. biometrics: Biparietal diameter: 9.5 cm, 38 weeks 6 days Head circumference: 35.1 cm, 40 weeks 6 days Abdominal circumference: 40.7 cm, out of range. Femur length: 8.1 cm, 41 weeks 3 days Clinically estimated gestational age: 38 weeks 5 days Composite gestational age from present scan: 40 weeks 3 days Estimated weight and percentile: 4825 g, percentile out of range IMPRESSION: 1. Ross living intrauterine at 40 weeks 3 days based on today's ultrasound. Estimated weight 4825 g, +/-714 g. However, this is within normal limits with the prior dating +/-3 weeks. The femur length is in the 97th percentile. The abdominal circumference and estimated weight are out of range. 2. Normal placenta and amniotic fluid. We strive to produce accurate, complete, and clear reports of imaging services. To assist us in improving patient care, this report was composed using standard report templates and voice recognition software. Therefore, it may contain abnormal punctuation, insertions and/or omissions. Occasional wrong-word or sound-alike substitutions may occur. Though we review the report and make efforts to correct it, we do recommend that the report be read carefully in proper context to recognize any text inaccuracies. Dictated by: Daniel Melo M.D. on 08/05/2024 at 15:52 Approved by: Daniel Melo M.D. on 08/05/2024 at 16:02
[2024-08-05 16:13] LABS: Add Manual Diff / Slide Review NO; Basophils Absolute Auto 100 /uL (0-100); Basophils Percent Auto 0.6 % (0-2); Eosinophils Absolute Auto 100 /uL (0-450); Hematocrit 35.8 % (36-46); Hemoglobin 11.9 g/dL (12.0-16.0); Lymphocytes Absolute Auto 2000 /uL (1100-4500); Lymphocytes Percent Auto 21.1 % (25-40); Mean Corpuscular HGB Conc 33.1 % (30-36); Mean Corpuscular Hemoglobin 28.1 PG (26-34); Mean Corpuscular Volume 84.7 fL (80-100); Monocytes Absolute Auto 700 /uL (0-900); Monocytes Percent Auto 7.6 % (3-14); Neutrophils Absolute Auto 6700 /uL (1500-7000); Neutrophils Percent Auto 69.7 % (50-75); Platelet Count 316 X10^3/uL (150-400); Red Blood Cell Count 4.23 X10^6/uL (4.0-5.2); Red Cell Distribution Width 14.7 % (11.6-14.8); White Blood Cell Count 9.6 X10^3/uL (4.5-11.0)
[2024-08-05 16:21] LABS: Alanine Aminotransferase 23 IU/L (<35); Albumin 3.4 g/dL (3.5-5.0); Albumin Globulin Ratio 1.1 (1.0-2.8); Alkaline Phosphatase 166 U/L (38-126); Aspartate Aminotransferase 33 IU/L (14-36); BUN Creatinine Ratio 17.2 (6-22); Bilirubin Total 0.4 mg/dL (0.2-1.3); Blood Urea Nitrogen 11 mg/dL (7-17); Calcium 9.5 mg/dL (8.4-10.2); Carbon Dioxide 22 mmol/L (22-32); Chloride 105 mmol/L (98-107); Estimated Glomerular Filt Rate > 60 mL/min (>60); Globulin 3.1 g/dL (1.7-4.1); Glucose 79 mg/dL (70-100); HEMOLYSIS < 15 (0-50); Potassium 4.1 mmol/L (3.4-5.1); Sodium 134 mmol/L (137-145); Total Protein 6.5 g/dL (6.3-8.2); Uric Acid 4.5 mg/dL (2.5-6.2)
[2024-08-05 16:40] LABS: Creatinine Urine Random 168.13 mg/dL; Protein (Total) Urine Random 9 mg/dL (0-12); Protein Creatinine Ratio Urine 0.05 GRAM/24H
--- NOTE | 2024-08-05 17:26 | P.HPOB_ITS ---
OB HPI History of Present Condition Chief complaint: OBS FABIAN Calculator 2 Estimated Delivery Date Method Current WG Current Estimate 08/14/24 Ultrasound #1 38w 6d Other Estimates 08/07/24 LMP (Certain) 39w 6d Estimated Gestational Age (weeks): 38w5d : 3 Para: 1 Narrative: Pt is a 39yo at 38w5d who presented from clinic with elevated blood pressures. The pt reports mild increase in swelling over the past 1-2 days. No headaches, vision changes, RUQ pain. She has otherwise been feeling well. She denies any contractions. She had scant vaginal spotting on 08/01 but no significant vaginal bleeding. She denies any LOF. She is feeling her baby move regularly. The pts was complicated by AMA with negative cfDNA, as well as morbid obesity, BMI now 52. Transfer was attempted to an outside facility however was not able to be obtained prior to today. care: good care, initiated at week # (7) and pounds weight gain (53) Ultrasounds: normal 1st trimester US and normal mid trimester US Indications Indication for induction OB: gestational HTN/pre-eclampsia Preadmission Labs Last OB Lab Results: 2 Blood Type O Positive 08/05/24 17:45 Antibody Screen Negative 08/05/24 17:45 Hct 35.8 % (36-46) L 08/05/24 15:45 Hgb 11.9 g/dL (12.0-16.0) L 08/05/24 15:45 Hep Bs Antigen Negative s/c (NEGATIVE) 01/24/24 16:18 Hepatitis C Antibody Negative s/c (NEGATIVE) 01/24/24 16:18 Rubella Antibody 26.6 IU/mL (>15) 01/24/24 16:18 VZV IgG Antibody 3684 index (Immune >165) 01/24/24 16:18 Glucose 1 Hr 50 gm 132 mg/dL (76-139) 05/11/24 16:00 Hemoglobin A1c 5.0 % (4.0-6.0) 01/24/24 16:18 Group B Strep (PCR) Pos for grp b strep H 07/22/24 15:54 -: Urine: negative Genetic Screens: Cell-free DNA: Normal External Labs -: Urine: negative Prior (ies) Past Pregnancies Del. Date GA/Weeks Labor Lgth Wt Sex Route Outcome Anesthesia Place Delv Breastfeed Preg Comp Name 08/11/08 39.5 13 8 lb 7 oz Female vaginal vacuum live - full term epidural IH 3-4 months meconium Yoan valverde 06/20/15 6 spontaneous Delivery Date: 06/20/15 Last Updated by: Caterina Blankenship RN missed AB, stopped developing ~6 wk, passed spontaneously ~8 wk, no complications Evaluation Evaluation Baseline heart rate: 130 Variability: Moderate (11-25) monitor accelerations: Present Monitor Decelerations: Absent Status: Category l Dilation (cm): 4 Effacement (%): 60 Dilation: 3-4 cm Effacement: 60-70% station: -1 Position of cervix: anterior Consistency: soft [place] score: 10 PFSH Medical History (Updated 12/20/23 @ 14:32 by Caterina Blankenship RN) depression Fractured great toe (~2012) Abnormal endoscopy of upper gastrointestinal tract Chemical dependency Left lower quadrant abdominal pain Anxiety Twin gestation in first trimester Threatened miscarriage Surgical History (Updated 12/20/23 @ 13:16 by Caterina Blankenship RN) History of appendectomy Family History (Updated 12/20/23 @ 13:23 by Caterina Blankenship RN) Mother Discoid lupus Osteoporosis Rheumatoid arthritis Uterine prolapse Memory loss Hyperthyroidism Father Emphysema lung Cancer Heavy smoker Alcoholism Sister Family estrangement Substance abuse Mental health problem Brother Anxiety De Quervain's tenosynovitis Sister Substance abuse Anxiety Depression PCOS (polycystic ovarian syndrome) Brother Back injury Substance abuse Chronic pain Daughter Eczema Social History marital status: unmarried,single number of children: 1 household members: children lives independently: Yes caregiver/support person: Yes housing: house pets and animals: Yes (4 small dogs, poultry) education level: vocational (some college) 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) current occupational exposures/hazards: No special vamshi needs: No travel history: over 6 months ago seatbelt use: always helmet use: No (counseled to get and use one) water heater temp set < 120 deg: Yes working smoke detector in home: Yes fire extinguisher in home: No carbon monox detector in home: Yes firearms in home: Yes firearms unloaded and locked: Yes do you feel safe at home: Yes Smoking Status: Never smoker Tobacco: How many years used: 14 second hand exposure: Yes (s/o smokes, but not around pt) alcohol intake: former (sober since early 2022) substance use type: former substance user (sober since early 2022) and marijuana (not while /) during the past year weight has: decreased > 10 lbs well-balanced diet: about half the time daily servings fruits/ve-4 caffeine: Yes (quit w/ +UPT, discussed 200mg/day limit) Type(s) of exercise: walking frequency: daily Meds Home Medications and Allergies Home Medications Medication Instructions Recorded Confirmed Type Lactobacillus rhamnosus GG 20 cell PO 12/20/23 08/05/24 History billion cell capsule (Probiotic Digestive Care) vitamin-ferrous sulfate tab PO 12/20/23 08/05/24 History 27 mg iron-folic acid 0.8 mg tablet sertraline 25 mg tablet 25 mg PO DAILY #30 tabs 07/16/24 08/05/24 Rx ondansetron 4 mg disintegrating 4 mg PO Q6H PRN nausea and 07/29/24 08/05/24 Rx tablet vomiting #20 tabs Allergies Allergy/AdvReac Type Severity Reaction Status Date / Time Penicillins Allergy Severe Blister Verified 08/05/24 14:34 amoxicillin [AMOXICILLIN] Allergy Unknown Verified 08/05/24 22:45 Benzodiazepines AdvReac Dependence Verified 08/05/24 14:34 Opioids - Morphine Analogues AdvReac Dependence Verified 08/05/24 14:34 OB Exam Resp Effort & Inspection: normal respiratory effort Auscultation: clear to auscultation bilaterally Cardio Rate: regular rate Rhythm: regular rhythm Heart Sounds: S1 normal, S2 normal and no murmurs GI Inspection: non-distended Palpation: Yes soft and No tender Presentation: vertex Objective Labs 08/05/24 15:45 08/05/24 15:45 Labs: Laboratory Results - last 24 hr 08/05/24 15:45 WBC 9.6 RBC 4.23 Hgb 11.9 L Hct 35.8 L MCV 84.7 MCH 28.1 MCHC 33.1 RDW 14.7 Plt Count 316 Neut % (Auto) 69.7 Lymph % (Auto) 21.1 L [place] % (Auto) 7.6 Eos % (Auto) 1.0 L Baso % (Auto) 0.6 Neut # (Auto) 6700 Lymph # (Auto) 2000 [place] # (Auto) 700 Eos # (Auto) 100 Baso # (Auto) 100 Sodium 134 L Potassium 4.1 Chloride 105 Carbon Dioxide 22 BUN 11 Creatinine 0.64 Estimated GFR > 60 BUN/Creatinine Ratio 17.2 Glucose 79 Uric Acid 4.5 Calcium 9.5 Total Bilirubin 0.4 AST 33 ALT 23 Alkaline Phosphatase 166 H Total Protein 6.5 Albumin 3.4 L Globulin 3.1 Albumin/Globulin Ratio 1.1 U Random Total Protein 9 Urine Creatinine 168.13 Protein/Creatinin Ratio 0.05 Assessment and Plan Assessment and Plan Assessment and Plan narrative: Pt is a 39yo at 38w5d who presented from clinic with elevated blood pressures. Negative pre-eclampsia/HELLP labs, however pts BPs have remained > 140/90, therefore diagnosed with gestational hypertension. Based on gestational age, will plan on IOL. Due to staffing, will proceed in the morning. complicated by morbid obesity, however were unable to transfer care to an outside facility. Growth u/s completed today does show LGA fetus, with EFW 4825g. Pts pelvis is proven to 8lb7oz. No GDM during . Will cautiously proceed with vaginal delivery, however did discuss with patient that if labor curve not tracking nicely, or if while pushing not making progressive descent, will need to consider . Pt in agreement. - Monitor BPs closely overnight. - Start PO Labetalol 100mg BID for now - Will use IV medications for BP > 160/110 - FHT reassuring, NSTs q4hrs overnight Time-Based Coding :: [TOTAL MINUTES] spent with patient and on the chart (including review of chart, obtaining history, exam, reviewing outside data, placing orders, documenting exam and treatment plan, and counseling patient) on [DATE].
[2024-08-05 21:09] VITALS: BP 128/90; PULSE 115
[2024-08-05] MEDS: LABETALOL 100 MG TABLET PO (21:09)
[2024-08-05 21:18] VITALS: BP 129/90
[2024-08-05] MEDS: ZOLPIDEM 5 MG TABLET 10 MG PO (22:51)
[2024-08-06] MEDS: VANCOMYCIN 2,000 MG in SODIUM CHLORIDE 0.9% 500 ML 250 MG IV (07:52)
[2024-08-06] MEDS: LACTATED RINGERS 1,000 ML 100 ML IV ×2 (07:52→15:29)
[2024-08-06] MEDS: LACTATED RINGERS 1,000 ML 1000 ML IV (08:30)
[2024-08-06] MEDS: OXYTOCIN PREMIX 30 UNIT/500 ML PLAST..BAG IV (08:35)
[2024-08-06 09:04] VITALS: BP 138/80; PULSE 95
[2024-08-06] MEDS: LABETALOL 100 MG TABLET PO (09:04)
--- NOTE | 2024-08-06 09:24 | P.PNOB_ITS ---
Date/Time Date Patient Seen: 08/06/24 Time Patient Seen: 09:24 Pain Control Pain control: tolerating well Pelvic Exam Dilation (cm): 4.5 Effacement (%): 60 station: -1 Amniotic membrane status: Intact Contractions Contractions on admission: none Monitor mode: External Pitocin rate (mU/min): 4 Contraction frequency (min): 3 Contraction pattern: Irregular Contraction intensity: Mild Status status: Category l Heart Rate Baseline: 130 Monitor Accelerations: Present Monitor Decelerations: Absent Monitor Variability: Moderate Assessment and Plan Comments: Pt is a 39yo at 38w5d here for IOL due to gestational HTN. Negative pre- eclampsia/HELLP labs at admission. GBS positive, Rh positive. complicated by morbid obesity. Baby LGA with EFW 4825g. Pt aware of risks of shoulder dystocia with vaginal delivery and risks of . Will cautiously proceed with vaginal delivery, however did discuss with patient that if labor curve not tracking nicely, or if while pushing not making progressive descent, will need to consider . Pt in agreement. - Continue pitocin, titrate as tolerated - Vancomycin q8hrs for GBS prophylaxis - FHT reassuring - Epidural for pain control when desired
[2024-08-06] MEDS: ePHEDrine 50 MG/ML VIAL IV ×3 (14:42→14:52)
--- NOTE | 2024-08-06 15:29 | P.PCN_ITS ---
Regional Block Pre-procedure Procedure: Continuous Lumbar Epidural for L&D (with lumbar puncture) Attending OB provider: Jamia Barger PMH/ROS narrative: 39yo female, AMA with prior vaginal delivery about 15 years ago, in labor requesting epidural. Difficult placement primarily due to pt's BMI of 52. After attempting epidural twice, Cassie Harris CRNA requested a new provider attempt placement. ASA Class: III Labs: Hct 35.8 % (36-46) L 08/05/24 15:45 Plt Count 316 X10^3/uL (150-400) 08/05/24 15:45 Medications: Current Medications Generic Name Dose Route Start Last Admin Trade Name Freq PRN Reason Stop Dose Admin Calcium Carbonate 1,000 mg 08/05/24 17:18 Calcium Carbonate 500 Mg Tab PO Q2HR PRN Dyspepsia Carboprost Tromethamine 250 mcg 08/05/24 17:18 Carboprost 250 Mcg/Ml Ampul IM Q90M PRN Bleeding Diphenhydramine HCl 25 mg 08/06/24 14:30 Diphenhydramine 50 Mg/Ml Vial IV Q10M PRN Pruritis Ephedrine Sulfate 5 mg 08/06/24 15:30 08/06/24 14:52 Ephedrine 50 Mg/Ml Vial IV 5 mg Q1M JEFFY Administration Oxytocin/Lactated Ringer's 30 unit in 500 mls @ 200 mls/hr 08/05/24 17:18 Oxytocin Premix IV CONT PRN Bleeding Protocol Tranexamic Acid 1,000 mg/ 100 mls @ 600 mls/hr 08/05/24 17:18 Sodium Chloride IV NOW PRN Bleeding Oxytocin/Lactated Ringer's 30 unit in 500 mls @ 2 mls/hr 08/05/24 17:30 08/06/24 08:35 Oxytocin Premix IV 2 milliunit/min TITRATE JEFFY 2 mls/hr Administration Protocol 2 MILLIUNIT/MIN Vancomycin HCl 1,250 mg/ 250 mls @ 250 mls/hr 08/06/24 15:30 Sodium Chloride IV Q8H JEFFY FENT 2MCG/ML BUPIV 0.125% EPI 200 mcg in 100 mls @ 6 mls/hr 08/06/24 14:30 Fentanyl/Bupiv/Ns 2mcg/Ml - 0.125% EPIDURAL CONT JEFFY Labetalol HCl 100 mg 08/05/24 21:00 08/06/24 09:04 Labetalol 100 Mg Tablet PO 100 mg BID JEFFY Administration Lidocaine HCl 20 ml 08/05/24 17:18 Lidocaine 1% 20 Ml INJ INTRA-OP PRN Post Delivery Methylergonovine Maleate 0.2 mg 08/05/24 17:18 Methylergonovine 0.2 Mg Tablet PO Q6HR PRN Heavy Bleeding Methylergonovine Maleate 0.2 mg 08/05/24 17:18 Methylergonovine 0.2 Mg/Ml Vial IM NOW PRN Bleeding Mineral Oil 30 ml 08/05/24 17:18 Mineral Oil 30 Ml Udc TOP PRN PRN Version Misoprostol 800 mcg 08/05/24 17:18 Misoprostol 200 Mcg Tablet ME NOW PRN Bleeding Misoprostol 400 mcg 08/05/24 17:18 Misoprostol 200 Mcg Tablet SL NOW PRN Bleeding Nalbuphine HCl 5 mg 08/06/24 14:29 Nalbuphine 20 Mg/Ml Ampul IV Q6H PRN Pruritus Nalbuphine HCl 2.5 mg 08/06/24 14:30 Nalbuphine 20 Mg/Ml Ampul IV Q10M PRN Pruritis Naloxone HCl 0.2 mg 08/05/24 17:18 Naloxone 0.4 Mg/Ml Vial IV Q2MIN PRN Opiate Reversal Naloxone HCl 0.4 mg 08/06/24 14:29 Naloxone 0.4 Mg/Ml Vial IV Q2MIN PRN Opiate Reversal Ondansetron HCl 4 mg 08/05/24 17:18 Ondansetron 4 Mg/2 Ml Inj IV Q4HR PRN Nausea And Vomiting Ondansetron HCl 4 mg 08/06/24 17:00 Ondansetron 4 Mg/2 Ml Inj IV 08/06/24 21:01 Q4HR JEFFY Oxytocin 10 unit 08/05/24 17:18 Oxytocin 10 Unit/Ml Vial IM NOW PRN Bleeding Vancomycin HCl 1 request 08/05/24 17:23 Vancomycin Per Pharmacy MISC NOW PRN . Vancomycin HCl 1 request 08/07/24 07:00 Vancomycin Trough MISC 08/07/24 07:01 0700 ONE Zolpidem Tartrate 10 mg 08/05/24 22:41 08/05/24 22:51 Zolpidem 5 Mg Tablet PO 10 mg BEDTIME PRN Administration Sleep Allergies: Allergies Allergy/AdvReac Type Severity Reaction Status Date / Time Penicillins Allergy Severe Blister Verified 08/05/24 14:34 amoxicillin [AMOXICILLIN] Allergy Unknown Verified 08/05/24 22:45 Benzodiazepines AdvReac Dependence Verified 08/05/24 14:34 Opioids - Morphine Analogues AdvReac Dependence Verified 08/05/24 14:34 Procedure Insertion date: 08/06/24 Insertion time: 13:56 Prep/Local: 1% lidocaine (Chloraprep) Interspace: Presumed L3-4. Landmarks very difficult to palpate. Patient position: sitting Needle: 18 gauge Demandforcetead (27g pencil point needle for intrathecal puncture) Loss of resistance with: saline MILAGROS at (cm): 9 Catheter placed at SKIN (cm): 16 Catheter in SPACE (cm): 7 Insertion: No CSF, No Blood, No Paresthesia with insertion, No Paresthesia with injection and No Test dose reaction Initial Medications TEST DOSE time: 13:58 TEST DOSE: 1.5% lidocaine with epinephrine 1:200k (mL): 3 BOLUS DOSE time: 13:59 BOLUS DOSE (mL): 7 BOLUS DOSE med: other (2 ml same as test dose, 5 ml of 0.25% bupivacaine) Infusion INFUSION: 0.125% bupivacaine and with fentanyl 2 mcg/mL Initial rate (mL/hr): 10 Subsequent interventions: Despite patient's BMI and difficulty palpating landmarks, with careful patient positioning, I was fortunately able to get the epidural on first attempt without need for needle redirection. Pt reported only pressure sensations after initial epidural dose took effect. Epidural pump set up by Cassie Harris and started at 14:15. Ruben Post-procedure Anesthesia date START: 08/06/24 Anesthesia time START: 13:43 Anesthesia date END: 08/06/24 Anesthesia time END: 21:46 Post-procedure Anesthesia Assessment: Yes CV function: HR/BP stable, Yes Resp function: RR/sat/airway adequate, Yes Post-op hydration adequate, Yes Pain control adequate, Yes Nausea & vomiting absent, Yes Temperature > 36 C, Yes Mental status appropriate and No Anesthesia complications (Pt requires C- section. Epidural labor anesthesia record ended. )
[2024-08-06] MEDS: VANCOMYCIN 1,250 MG in SODIUM CHLORIDE 0.9% 250 ML 250 MG IV (16:08)
--- NOTE | 2024-08-06 16:57 | P.PNOB_ITS ---
Date/Time Date Patient Seen: 08/06/24 Time Patient Seen: 12:00 Pain Control Pain control: tolerating well Pelvic Exam Dilation (cm): 6 Effacement (%): 60 station: -1 Amniotic membrane status: Intact Contractions Monitor mode: External Pitocin rate (mU/min): 14 Contraction frequency (min): 3 Contraction pattern: Irregular Contraction intensity: Mild Status status: Category l Heart Rate Baseline: 130 Monitor Accelerations: Present Monitor Decelerations: Absent Monitor Variability: Moderate Assessment and Plan Comments: Pt is a 39yo at 38w5d here for IOL due to gestational HTN. Negative pre- eclampsia/HELLP labs at admission. GBS positive, Rh positive. complicated by morbid obesity. Baby LGA with EFW 4825g. Pt aware of risks of shoulder dystocia with vaginal delivery and risks of . AROM performed with copious clear fluid present. - Continue pitocin, titrate as tolerated. Pt with limited cervical change however not yet in labor/feeling contractions. - Vancomycin q8hrs for GBS prophylaxis - FHT reassuring - Epidural for pain control when desired
--- NOTE | 2024-08-06 16:59 | P.PNOB_ITS ---
Date/Time Date Patient Seen: 08/06/24 Time Patient Seen: 17:00 Pain Control Pain control: epidural Pelvic Exam Dilation (cm): 10 Effacement (%): 100 station: 0 Amniotic membrane status: Intact Contractions Monitor mode: External Contraction frequency (min): 3 Contraction pattern: Regular Contraction intensity: Mild Status status: Category ll Heart Rate Baseline: 135 Monitor Accelerations: Present Monitor Decelerations: Variable Monitor Variability: Moderate Assessment and Plan Comments: Pt is a 39yo at 38w5d here for IOL due to gestational HTN. Negative pre- eclampsia/HELLP labs at admission. GBS positive, Rh positive. complicated by morbid obesity. Baby LGA with EFW 4825g. Pt aware of risks of shoulder dystocia with vaginal delivery and risks of . AROM performed with copious clear fluid present earlier today. Pt is now pushing, good descent with pushes. head moulding for progression under pubic symphysis. - Pitocin turned off, gray frequently. Expectant management. - Vancomycin q8hrs for GBS prophylaxis - FHT reassuring, very intermittent variable decels - Epidural for pain control when desired
--- NOTE | 2024-08-06 18:25 | PM.AN.REGBLK ---
Regional Block Pre-procedure PMH/ROS narrative: 39yr old female with history of morbid obesity and substance abuse (opoids and benzos) ASA Class: III Labs: Hct 35.8 % (36-46) L 08/05/24 15:45 Plt Count 316 X10^3/uL (150-400) 08/05/24 15:45 Medications: Current Medications Generic Name Dose Route Start Last Admin Trade Name Freq PRN Reason Stop Dose Admin Calcium Carbonate 1,000 mg 08/05/24 17:18 Calcium Carbonate 500 Mg Tab PO Q2HR PRN Dyspepsia Carboprost Tromethamine 250 mcg 08/05/24 17:18 Carboprost 250 Mcg/Ml Ampul IM Q90M PRN Bleeding Diphenhydramine HCl 25 mg 08/06/24 14:30 Diphenhydramine 50 Mg/Ml Vial IV Q10M PRN Pruritis Ephedrine Sulfate 5 mg 08/06/24 15:30 08/06/24 14:52 Ephedrine 50 Mg/Ml Vial IV 5 mg Q1M JEFFY Administration Oxytocin/Lactated Ringer's 30 unit in 500 mls @ 200 mls/hr 08/05/24 17:18 Oxytocin Premix IV CONT PRN Bleeding Protocol Tranexamic Acid 1,000 mg/ 100 mls @ 600 mls/hr 08/05/24 17:18 Sodium Chloride IV NOW PRN Bleeding Oxytocin/Lactated Ringer's 30 unit in 500 mls @ 2 mls/hr 08/05/24 17:30 08/06/24 08:35 Oxytocin Premix IV 2 milliunit/min TITRATE JEFFY 2 mls/hr Administration Protocol 2 MILLIUNIT/MIN Vancomycin HCl 1,250 mg/ 250 mls @ 250 mls/hr 08/06/24 15:30 08/06/24 16:08 Sodium Chloride IV 250 mls/hr Q8H JEFFY Administration FENT 2MCG/ML BUPIV 0.125% EPI 200 mcg in 100 mls @ 6 mls/hr 08/06/24 14:30 Fentanyl/Bupiv/Ns 2mcg/Ml - 0.125% EPIDURAL CONT JEFFY Labetalol HCl 100 mg 08/05/24 21:00 08/06/24 09:04 Labetalol 100 Mg Tablet PO 100 mg BID JEFFY Administration Lidocaine HCl 20 ml 08/05/24 17:18 Lidocaine 1% 20 Ml INJ INTRA-OP PRN Post Delivery Methylergonovine Maleate 0.2 mg 08/05/24 17:18 Methylergonovine 0.2 Mg Tablet PO Q6HR PRN Heavy Bleeding Methylergonovine Maleate 0.2 mg 08/05/24 17:18 Methylergonovine 0.2 Mg/Ml Vial IM NOW PRN Bleeding Mineral Oil 30 ml 08/05/24 17:18 Mineral Oil 30 Ml Udc TOP PRN PRN Version Misoprostol 800 mcg 08/05/24 17:18 Misoprostol 200 Mcg Tablet MS NOW PRN Bleeding Misoprostol 400 mcg 08/05/24 17:18 Misoprostol 200 Mcg Tablet SL NOW PRN Bleeding Nalbuphine HCl 5 mg 08/06/24 14:29 Nalbuphine 20 Mg/Ml Ampul IV Q6H PRN Pruritus Nalbuphine HCl 2.5 mg 08/06/24 14:30 Nalbuphine 20 Mg/Ml Ampul IV Q10M PRN Pruritis Naloxone HCl 0.2 mg 08/05/24 17:18 Naloxone 0.4 Mg/Ml Vial IV Q2MIN PRN Opiate Reversal Naloxone HCl 0.4 mg 08/06/24 14:29 Naloxone 0.4 Mg/Ml Vial IV Q2MIN PRN Opiate Reversal Ondansetron HCl 4 mg 08/05/24 17:18 Ondansetron 4 Mg/2 Ml Inj IV Q4HR PRN Nausea And Vomiting Ondansetron HCl 4 mg 08/06/24 17:00 Ondansetron 4 Mg/2 Ml Inj IV 08/06/24 21:01 Q4HR JEFFY Oxytocin 10 unit 08/05/24 17:18 Oxytocin 10 Unit/Ml Vial IM NOW PRN Bleeding Vancomycin HCl 1 request 08/05/24 17:23 Vancomycin Per Pharmacy MISC NOW PRN . Vancomycin HCl 1 request 08/07/24 07:00 Vancomycin Trough MISC 08/07/24 07:01 0700 ONE Zolpidem Tartrate 10 mg 08/05/24 22:41 08/05/24 22:51 Zolpidem 5 Mg Tablet PO 10 mg BEDTIME PRN Administration Sleep Allergies: Allergies Allergy/AdvReac Type Severity Reaction Status Date / Time Penicillins Allergy Severe Blister Verified 08/05/24 14:34 amoxicillin [AMOXICILLIN] Allergy Unknown Verified 08/05/24 22:45 Benzodiazepines AdvReac Dependence Verified 08/05/24 14:34 Opioids - Morphine Analogues AdvReac Dependence Verified 08/05/24 14:34 --: Unable to find epidural space at [address] Gutierrez in to do epidural. See her note Procedure Insertion date: 08/06/24 Insertion time: 13:25 Prep/Local: 1% lidocaine (chloroprep) Interspace: L4-5/L3-4 Patient position: sitting Needle: 18 gauge Hustead (27gWhitacre) Loss of resistance with: saline Post-procedure Anesthesia date START: 08/06/24 Anesthesia time START: 12:48 Anesthesia date END: 08/06/24 Anesthesia time END: 13:45 Post-procedure Anesthesia Assessment: Yes CV function: HR/BP stable, Yes Resp function: RR/sat/airway adequate, Yes Post-op hydration adequate, Yes Pain control adequate, Yes Nausea & vomiting absent, Yes Temperature > 36 C and Yes Mental status appropriate
[2024-08-06] MEDS: FENT 2MCG/ML BUPIV 0.125% EPI 200 MCG/100 ML PLAST..BAG 6 MCG EPIDURAL (19:22)
[2024-08-06] MEDS: FAMOTIDINE 20 MG TABLET PO (19:57)
--- NOTE | 2024-08-06 21:04 | P.PNOB_ITS ---
Date/Time Date Patient Seen: 08/06/24 Time Patient Seen: 21:04 Pain Control Pain control: epidural Pelvic Exam Dilation (cm): 10 Effacement (%): 100 station: +1 Amniotic membrane status: Intact Contractions Monitor mode: External Contraction frequency (min): 3 Contraction pattern: Regular Contraction intensity: Mild Status status: Category l Heart Rate Baseline: 130 Monitor Accelerations: Absent Monitor Decelerations: Absent Monitor Variability: Moderate Assessment and Plan Comments: Pt is a 39yo at 38w5d here for IOL due to gestational HTN. Negative pre- eclampsia/HELLP labs at admission. GBS positive, Rh positive. complicated by morbid obesity. Baby LGA with EFW 4825g. Pt aware of risks of shoulder dystocia with vaginal delivery and risks of . AROM performed with copious clear fluid present earlier today. Pt with very good pushing effort, and with continued descent although very slow. position palpates as asynclitic. Pt developing significant caput. Pt pushed for 4hrs, now with skull at 0 to +1 station. After thorough discussion of risks vs benefits of continued pushing vs vacuum vs agreement was made to cautiously attempt vacuum-extraction. The vacuum was applied. With the initial contraction (3 pulls) noted some descent. On the 2nd contraction, the vacuum lost suction. The vacuum then continued to lose suction, despite trying other vacuums. Attempted over the course of 5 contractions. Due to no significant further descent, vacuum not maintaining suction likely due to significant caput and moulding, all in the setting of LGA baby the decision was made to proceed with primary . The risks of surgery were discusssed including but not limited to bleeding/hemorrhage, infection, injury to other organs such as bowel/bladder, injury to fetus. The pt agrees to blood transfusion if medically necessary. Consent was signed and placed in the chart. The pt will have SCDs placed prior to surgery. She will receive Azithromycin, Clindamycin, and Gentamicin prior to surgery for prophylaxis. Planning to rebolus epidural for anesthesia.
[2024-08-06] MEDS: CITRIC ACID/SODIUM CITRATE 15 ML SOLUTION 30 ML PO (21:18)
--- NOTE | 2024-08-06 21:28 | PM.PREOP ---
Pre-operative Note Interval Note History & Physical reviewed/Exam performed by Physician: Yes Changes to H&P: No
[2024-08-06 23:33] VITALS: BP 167/105; PULSE 90; RESP 20; O2SAT 100
[2024-08-06 23:38] VITALS: BP 164/105; BP 165/103; PULSE 94; RESP 16; RESP 20; TEMP 36.2; O2SAT 100
--- NOTE | 2024-08-06 23:38 | PM.OBCS.1 ---
Operative Date/Time/Diagnoses Date of procedure: 08/06/24 Time of procedure: 22:30 Pre-op diagnosis: 39w0d gestation GBS positive Rh positive Gestational hypertension Failure to descend, failed vacuum extraction LGA Post-op diagnosis: same Procedure & Clinicians Procedure: Primary Same procedure as scheduled: Yes Indications: Failure to descend Failed vacuum extraction Surgeon: Jamia Barger Click Yes if Unassisted: No Business Practices Supervisor: Braulio Ballesteros Anesthesia Type: Epidural Operative Notes Findings: Normal uterus, ovaries, and tubes Closure Type: primary Applied: Catheter Estimated Blood Loss (mL): 700 Blood products transfused: none Procedure in detail: OPERATIVE COURSE: The patient was taken to the operating room where epidural anesthesia was bolused. She was then prepared and draped in the normal sterile fashion in the dorsal supine position with a leftward tilt. Anesthesia was tested and found to be adequate. A Pfannensteil skin incision was then made with the scalpel and carried through to the underlying layer of fascia with the scalpel. The fascia was incised in the midline and the incision extended laterally with the Marie scissors. The superior aspect of the fascial incision was then grasped with Kiana clamps, elevated with the help of the medicine assistant, and the underlying rectus muscles dissected off bluntly and sharply where needed. Attention was then turned to the inferior aspect of the incision which, in a similar fashion, was grasped, tented up with Kiana clamps, and the rectus muscle dissected off bluntly and sharply with Marie scissors. The rectus muscles were then in the midline, and the peritoneum was identified and entered bluntly. The peritoneal incision was then extended with good visualization of the bladder. Retraction was provided by the medicine assistant. The bladder blade was then inserted and the vesicouterine peritoneum identified, grasped with pick-ups and entered sharply with the Metzenbaum scissors. The incision was then extended laterally and the bladder flap created digitally. The bladder blade was then reinserted and the lower uterine segment incised in a transverse fashion with the scalpel, with the medicine assistant providing suction. The uterine incision was then extended superolaterally by pulling superolaterally on both sides. Membranes were ruptured and fluid was clear. The bladder blade was removed the infant's head was flexed out of OP position, rotated towards the pts left, and delivered atraumatically, with fundal pressure by the medicine assistant and nursing hand elevating the head from below. The nose and mouth were suctioned with bulb suction and the cord was clamped and cut after 1 minute. The was handed off to the waiting nursing staff. Cord blood was collected for Rh status. The placenta was then delivered with gentle cord traction. The uterus was then exteriorized and cleared of all clots and debris. A right sided extension of the incision was noted. Due to heavy arterial bleeding on the left side of the incision, superior and inferior uterine artery ligation was completed on the left side of the incision was O-Vicryl. The uterine incision was repaired with O Vicryl in a running, locked fashion, using two sutures coming from either side. Two [id number] with O-Vicryl were completed for excellent hemostasis. The uterus was returned to the abdomen. The gutters were cleared of all clots. Hysterotomy was investigated and found to be hemostatic. The fascia was reapproximated with O Vicryl in a running fashion. The subcutaneous tissue was reapproximated with 3-O Vicryl. The skin was closed with 4-O Vicryl. The medicine assistant helped with retraction during closures. SPONGE AND NEEDLE COUNTS: Correct x3. DRESSING: MARYBETH ANTICOAGULATION: SCDs applied prior to Surgery Preop antibiotics given (see MAR). The patient was taken to recovery room having tolerated procedure well. Complications: none [place] Baby 1: Delivery Date: 08/06/24 Delivery Time: 22:20 Gender: Male Presentation: vertex Position: Left Occiput Posterior Placental Delivery Description: Spontaneous Cord Vessel Description: 3 Vessels score (1 min): 7 score (5 min): 9 weight: 10 lb 0.32 oz Post-operative Condition: stable Disposition: PACU Aftercare: routine postop
[2024-08-06 23:43] VITALS: BP 167/114; PULSE 96; RESP 16; TEMP 36.4; O2SAT 100
[2024-08-06] MEDS: fentaNYL 100 MCG/2 ML INJ IV (23:44)
[2024-08-06] MEDS: OXYCODONE IR 5 MG TABLET PO (23:49)
[2024-08-06] MEDS: LABETALOL 20 MG/4 ML SYRINGE 10 MG IV (23:54)
[2024-08-06 23:58] VITALS: BP 173/110; PULSE 84; RESP 18; O2SAT 100
[2024-08-07 00:06] VITALS: BP 176/106; PULSE 81; RESP 15; O2SAT 100
[2024-08-07 00:22] VITALS: BP 173/113; PULSE 83; RESP 15; TEMP 36.3; O2SAT 100
[2024-08-07 00:55] LABS: Add Manual Diff / Slide Review NO; Basophils Absolute Auto 0 /uL (0-100); Basophils Percent Auto 0.2 % (0-2); Eosinophils Absolute Auto 0 /uL (0-450); Hematocrit 31.9 % (36-46); Hemoglobin 10.3 g/dL (12.0-16.0); Lymphocytes Absolute Auto 900 /uL (1100-4500); Lymphocytes Percent Auto 3.3 % (25-40); Mean Corpuscular HGB Conc 32.3 % (30-36); Mean Corpuscular Hemoglobin 27.4 PG (26-34); Mean Corpuscular Volume 84.7 fL (80-100); Monocytes Absolute Auto 900 /uL (0-900); Monocytes Percent Auto 3.3 % (3-14); Neutrophils Absolute Auto 24400 /uL (1500-7000); Neutrophils Percent Auto 93.2 % (50-75); Platelet Count 252 X10^3/uL (150-400); Red Blood Cell Count 3.77 X10^6/uL (4.0-5.2); Red Cell Distribution Width 14.6 % (11.6-14.8); White Blood Cell Count 26.2 X10^3/uL (4.5-11.0)
[2024-08-07 01:01] LABS: Alanine Aminotransferase 23 IU/L (<35); Albumin 2.9 g/dL (3.5-5.0); Albumin Globulin Ratio 1.1 (1.0-2.8); Alkaline Phosphatase 143 U/L (38-126); Aspartate Aminotransferase 38 IU/L (14-36); Bilirubin Total 0.7 mg/dL (0.2-1.3); Blood Urea Nitrogen 20 mg/dL (7-17); Calcium 9.1 mg/dL (8.4-10.2); Carbon Dioxide 20 mmol/L (22-32); Chloride 104 mmol/L (98-107); Estimated Glomerular Filt Rate > 60 mL/min (>60); Globulin 2.7 g/dL (1.7-4.1); Glucose 134 mg/dL (70-100); HEMOLYSIS < 15 (0-50); Potassium 5.3 mmol/L (3.4-5.1); Sodium 130 mmol/L (137-145); Total Protein 5.6 g/dL (6.3-8.2)
[2024-08-07 01:02] LABS: Creatinine Urine Random 76.3 mg/dL
[2024-08-07] MEDS: LABETALOL 100 MG TABLET PO (01:12)
[2024-08-07 01:34] LABS: Protein (Total) Urine Random 26 mg/dL (0-12); Protein Creatinine Ratio Urine 0.34 GRAM/24H
[2024-08-07] MEDS: LACTATED RINGERS 1,000 ML 100 ML IV (03:29)
[2024-08-07] MEDS: KETOROLAC 30 MG/ML VIAL IV ×2 (05:25→11:45)
[2024-08-07] MEDS: ACETAMINOPHEN 325 MG TABLET 650 MG PO ×4 (05:25→23:34)
[2024-08-07 06:18] LABS: Hematocrit 29.2 % (36-46); Hemoglobin 9.5 g/dL (12.0-16.0); Mean Corpuscular HGB Conc 32.6 % (30-36); Mean Corpuscular Hemoglobin 27.6 PG (26-34); Mean Corpuscular Volume 84.7 fL (80-100); Platelet Count 261 X10^3/uL (150-400); Red Blood Cell Count 3.44 X10^6/uL (4.0-5.2); Red Cell Distribution Width 14.7 % (11.6-14.8); White Blood Cell Count 27.6 X10^3/uL (4.5-11.0)
[2024-08-07 06:19] LABS: Add Manual Diff / Slide Review YES
[2024-08-07 06:32] LABS: Alanine Aminotransferase 30 IU/L (<35); Albumin 2.9 g/dL (3.5-5.0); Albumin Globulin Ratio 1.1 (1.0-2.8); Alkaline Phosphatase 123 U/L (38-126); Aspartate Aminotransferase 55 IU/L (14-36); BUN Creatinine Ratio 24.7 (6-22); Bilirubin Total 0.6 mg/dL (0.2-1.3); Blood Urea Nitrogen 18 mg/dL (7-17); Calcium 9.1 mg/dL (8.4-10.2); Carbon Dioxide 18 mmol/L (22-32); Chloride 103 mmol/L (98-107); Estimated Glomerular Filt Rate > 60 mL/min (>60); Globulin 2.7 g/dL (1.7-4.1); Glucose 152 mg/dL (70-100); HEMOLYSIS < 15 (0-50); Potassium 4.6 mmol/L (3.4-5.1); Sodium 130 mmol/L (137-145); Total Protein 5.6 g/dL (6.3-8.2)
[2024-08-07 06:36] LABS: Neutrophils Absolute Manual 26220 /uL (3000-5900); Total Cells Counted 100
[2024-08-07 06:37] LABS: Platelet Estimate Adequate on smear; RBC Morphology Normal Morphology
[2024-08-07] MEDS: FUROSEMIDE 20 MG/2 ML VIAL IV (08:59)
[2024-08-07 09:00] VITALS: BP 111/64; PULSE 91
[2024-08-07] MEDS: SERTRALINE 50 MG TABLET 25 MG PO (09:00)
[2024-08-07] MEDS: DOCUSATE 100 MG CAPSULE PO (09:01)
[2024-08-07] MEDS: PRENATAL VIT,CALC/IRON/FOLIC 1 TABLET 1 TAB PO (09:01)
[2024-08-07] MEDS: LANOLIN OINT 7 GM 1 APPLIC TOP (12:47)
--- NOTE | 2024-08-07 15:50 | PM.OBPN.1 ---
Subjective - OB Subjective Narrative: Patient reports that she is doing well. Her lochia is decreasing appropriately. She has voided successfully. She has been able to ambulate minimally. She is passing flatus. She is with good latch. No headache, vision changes, RUQ pain. Swelling is stable Exam Vital Signs (past 8 hours): - 08/07/24 09:00 Pulse Rate 91 H Blood Pressure 111/64 Oxygen Delivery Method Room Air Resp Auscultation: clear to auscultation bilaterally Cardio Rate: regular rate Rhythm: regular rhythm Heart Sounds: S1 normal, S2 normal and no murmurs GI Inspection: non-distended, incision (dressing c/d/i) and obesity Palpation: soft, No guarding and tender (appropriately tender) Auscultation: normal bowel sounds Other: fundus firm and below the umbilicus Extrem General: edema (1+ bilateral to mid-calf level) Objective Labs 08/07/24 05:57 08/07/24 05:57 Labs: Laboratory Results - last 24 hr 08/07/24 08/07/24 00:35 05:57 WBC 26.2 H D 27.6 H RBC 3.77 L 3.44 L Hgb 10.3 L 9.5 L Hct 31.9 L 29.2 L MCV 84.7 84.7 MCH 27.4 27.6 MCHC 32.3 32.6 RDW 14.6 14.7 Plt Count 252 261 Neut % (Auto) 93.2 H D Not Reportable Lymph % (Auto) 3.3 L Not Reportable [place] % (Auto) 3.3 Not Reportable Eos % (Auto) 0.0 L Not Reportable Baso % (Auto) 0.2 Not Reportable Neut # (Auto) 34541 H Lymph # (Auto) 900 L Not Reportable [place] # (Auto) 900 Not Reportable Eos # (Auto) 0 Baso # (Auto) 0 Not Reportable Total Counted 100 Seg Neutrophils % 68.0 Band Neutrophils % 27.0 H Lymphocytes % (Manual) 3.0 L Atypical Lymphs % 1.0 H Monocytes % (Manual) 1.0 L Neutrophils # (Manual) 60267 H Platelet Estimate Adequate on smear RBC Morphology Normal morphology Sodium 130 L 130 L Potassium 5.3 H D 4.6 Chloride 104 103 Carbon Dioxide 20 L 18 L BUN 20 H 18 H Creatinine 0.87 0.73 Estimated GFR > 60 > 60 BUN/Creatinine Ratio 23.0 H 24.7 H Glucose 134 H 152 H Calcium 9.1 9.1 Total Bilirubin 0.7 0.6 AST 38 H 55 H ALT 23 30 Alkaline Phosphatase 143 H 123 Total Protein 5.6 L 5.6 L Albumin 2.9 L 2.9 L Globulin 2.7 2.7 Albumin/Globulin Ratio 1.1 1.1 U Random Total Protein 26 H Urine Creatinine 76.3 Protein/Creatinin Ratio 0.34 Assessment & Plan Plan Comments: 39yo POD #1 after primary for failure to descend after IOL for gestational HTN. Immediately postoperatively pt noted to have elevated BPs up to the 170s/90s. She received a total of 20mg IV Labetalol, and her BP normalized. Labs sent at that time revealed elevated Pr/Cr, consistent with pre-eclampsia. However, when back on L&D with better fitting BP cuff BPs were in acceptable range, all < 160/110. She received a single dose of PO Labetalol last night, but has not required any additional BP medication. The pt did have decreased urinary output during labor and after surgery. She was given one dose of 20mg IV Lasix, now with excellent urinary output and LE edema improving. - Continue to monitor BPs closely - Continue to monitor urine output closely for need of repeat Lasix dosing - Normal care - support - 0.5mg/kg Lovenox BID for prophylaxis due to obesity and surgical status Time-Based Coding :: [TOTAL MINUTES] spent with patient and on the chart (including review of chart, obtaining history, exam, reviewing outside data, placing orders, documenting exam and treatment plan, and counseling patient) on [DATE].
[2024-08-07] MEDS: IBUPROFEN 600 MG TABLET PO ×2 (17:39→23:33)
[2024-08-07] MEDS: ENOXAPARIN 100 MG/ML SYRINGE 67 MG SUBCUT (18:07)
[2024-08-07 23:40] VITALS: BP 128/68; PULSE 93
[2024-08-08] MEDS: OXYCODONE IR 5 MG TABLET PO ×2 (02:30→09:24)
[2024-08-08] MEDS: ACETAMINOPHEN 325 MG TABLET 650 MG PO ×2 (05:57→12:07)
[2024-08-08] MEDS: IBUPROFEN 600 MG TABLET PO ×2 (05:58→12:08)
[2024-08-08] MEDS: ENOXAPARIN 100 MG/ML SYRINGE 67 MG SUBCUT (09:21)
[2024-08-08] MEDS: SERTRALINE 50 MG TABLET 25 MG PO (09:23)
[2024-08-08] MEDS: PRENATAL VIT,CALC/IRON/FOLIC 1 TABLET 1 TAB PO (09:24)
[2024-08-08] MEDS: DOCUSATE 100 MG CAPSULE PO (09:24)
--- NOTE | 2024-08-08 11:02 | P.DS_ITS ---
Discharge Providers Provider Date of admission: 08/05/24 15:17 Discharge Date: 08/08/24 Primary care physician: Nurys Bravo MD Consults: 08/07/24 00:50 Consult to Stripper Shovel Operator Routine Comment: Discharge provider: Jamia Barger MD Summary Hospital Course Date Patient Seen: 08/08/24 Time Patient Seen: 11:02 Diagnoses: 39w0d gestation GBS positive Rh positive Morbid obesity Gestational hypertension transitioning to pre-eclampsia without severe features Failure to descend, failed vacuum extraction Asynclitic presentation LGA Hospital Course: The pt presented for IOL for gestational HTN. She was initiated on pitocin. AROM was performed with clear fluid present. She progressed to complete dilation. After 4hrs of pushing, vacuum-assisted vaginal delivery was attempted however was stopped due to limited descent. The decision was made to proceed with primary . The pt delivered a viable baby boy in asynclitic position. Surgery was complicated by a right sided extension and arterial bleeding requiring uterine artery ligation. , the pts BPs were noted to be elevated, and lab work showed pt meeting criteria for pre-eclampsia. She received 20mg IV Labetalol and a single dose of PO Labetalol. Her BPs remained in normal range the remainder of her hospitalization. The pt did receive 20mg IV Lasix to increase her urine output. She was initiated on Lovenox BID, which will be continued as an outpatient, for prophylaxis. , there were no additional complications. At the time of discharge she was voiding, ambulating, and passing flatus without difficulty. Her lochia was decreasing appropriately. Her pain was well controlled. She was with good latch. She will f/u in 1 week for incision check. Peripartum Data Infant Delivery Method: Section Procedures: Primary complications: none [place] 1: Gender: Male Disposition of : home Time Spent with Patient Time attestation: Total time spent providing and/or coordinating discharge services: Objective Labs 08/07/24 05:57 08/07/24 05:57 Exam Vital Signs (past 8 hours): Oxygen Delivery Method Room Air Resp Auscultation: clear to auscultation bilaterally Cardio Rate: regular rate Rhythm: regular rhythm Heart Sounds: S1 normal, S2 normal and no murmurs GI Inspection: non-distended, incision (dressing c/d/i) and obesity Palpation: soft, No guarding and tender (appropriately tender) Auscultation: normal bowel sounds Other: fundus firm and below the umbilicus Extrem Right upper extremity: no edema Discharge Plan Discharge Plan Patient Disposition: Home Provider Discharge Comment: Take Tylenol and Ibuprofen alternating every 3 hours Add in Oxycodone as needed every 4 hours You will gradually space out the Oxycodone more and then wean off first. Then off Tylenol. Lastly off Ibuprofen. Discharge orders & Medications Prescriptions: New acetaminophen 325 mg Tablet 650 mg PO Q6H Qty: 60 0RF docusate sodium 100 mg Capsule 100 mg PO DAILY Qty: 30 0RF ibuprofen 600 mg Tablet 600 mg PO Q6H Qty: 90 0RF oxycodone 5 mg Tablet 5 mg PO Q4H PRN (Reason: Pain, Moderate (4-6)) Qty: 30 0RF enoxaparin [Lovenox] 60 mg/0.6 mL syringe 60 mg SUBCUT Q12H Qty: 18 0RF Continued sertraline 25 mg tablet 25 mg PO DAILY Qty: 30 2RF vit-ferrous sulfat-FA 27 mg iron- 0.8 mg tablet PO Probiotic Digestive Care 20 billion cell capsule PO Discontinued ondansetron 4 mg tablet,disintegrating 4 mg PO Q6H PRN (Reason: nausea and vomiting) Qty: 20 0RF Follow up/Referrals: Jamia Barger MD [Physician] - 1 Week (08/12/24 at 9:[address] Barger, dressing and incision check.) Nurys Bravo MD [Primary Care Provider] - Diet/Activity/Treatments Diet: Diet as Tolerated and Regular Skin/Wound/Dressing Care Report to your healthcare provider any signs of infection, such as:: chills, fever, increased pain and unusual drainage Visit Report/Discharge Packet Instructions: DI for Hemorrhage, DI for , DI for Depression, Enoxaparin Injection Stand Alone Forms: Discharge: Care, Patient Portal/API, Stroke Signs & Symptoms Discharge Data Primary Care Provider: Nurys Bravo Discharges patient from system. Discharge Date/Time: 08/08/24 17:14
== END 2024-08-08 17:14 | disposition home or self-care (01) | DRG 788 ==
PROVIDERS: Obstetrics & Gynecology; Admitting Provider Family Medicine; PCP Family Medicine; Referring Provider Family Medicine; Visit Provider Family Medicine
PROC: (CPT 59514; principal; 2024-08-06 22:00)
DX: O66.5 Attempted application of vacuum extractor and forceps (principal); O14.04 Mild to moderate pre-eclampsia, complicating childbirth; O99.214 Obesity complicating childbirth; E66.01 Morbid (severe) obesity due to excess calories; Z3A.39 39 weeks gestation of pregnancy; Z37.0 Single live birth; O99.824 Streptococcus B carrier state complicating childbirth; O36.63X0 Maternal care for excessive fetal growth, third trimester, not applicable or unspecified; Z67.40 Type O blood, Rh positive
CPT/HCPCS: 36415; 59025; 59050; 76815; 80053; 82570; 84156; 84550; 85007; 85025; 86850; 86900; 86901; A9270; G0379; J1100; J1650; J1885; J1940; J2250; J2274; J2405; J2590; J3010

== ENCOUNTER 2024-08-12 03:25 | Inpatient (IN) | payer OTHER, SELFPAY ==
[2024-08-12] VITALS (30 sets, daily range): BP systolic 113–169; BP diastolic 46–93; PULSE 75–97; RESP 16–19; TEMP 36.3–37.1; O2SAT 96–100; BMI 51.5
--- NOTE | 2024-08-12 03:52 | PC.NURSE ---
Pt gave on 08/06/24 to a 10 lb baby here at [facility]. Pt had pre-clampsia, no other issues for pt until yesterday. BP started to elevate, and they headache/dizziness.
[2024-08-12 04:01] LABS: Add Manual Diff / Slide Review NO; Basophils Absolute Auto 100 /uL (0-100); Basophils Percent Auto 0.8 % (0-2); Eosinophils Absolute Auto 400 /uL (0-450); Eosinophils Percent Auto 3.3 % (2-4); Hematocrit 25.2 % (36-46); Hemoglobin 8.3 g/dL (12.0-16.0); Lymphocytes Absolute Auto 2000 /uL (1100-4500); Lymphocytes Percent Auto 15.6 % (25-40); Mean Corpuscular HGB Conc 32.9 % (30-36); Mean Corpuscular Hemoglobin 27.8 PG (26-34); Mean Corpuscular Volume 84.4 fL (80-100); Monocytes Absolute Auto 900 /uL (0-900); Monocytes Percent Auto 6.8 % (3-14); Neutrophils Absolute Auto 9500 /uL (1500-7000); Neutrophils Percent Auto 73.5 % (50-75); Platelet Count 409 X10^3/uL (150-400); Red Blood Cell Count 2.99 X10^6/uL (4.0-5.2); Red Cell Distribution Width 15.2 % (11.6-14.8)
--- NOTE | 2024-08-12 04:11 | ED_ITS ---
HPI - Headache General Chief Complaint: Headache Stated Complaint: Post - BP Elevated Time Seen by Provider: 08/12/24 03:39 Mode of arrival: Ambulatory History of Present Illness HPI Narrative: Patient is a female with a history of recent section who presents with a headache and elevated blood pressure. She delivered a baby on night and had no significant problems during the until the very end when she developed preeclampsia. She was admitted for induction and has been struggling with high blood pressure since then. She started taking labetalol yesterday and has had two doses so far. She also reports swelling in her legs and hands, and a headache that has not been relieved by pain medication. Her blood pressure was 164/101 at home. She is currently on enoxaparin injections twice daily for clot prevention post- section. Medications: Enoxaparin injections, oxycodone as needed for pain, ibuprofen as needed for pain, acetaminophen as needed for pain, labetalol 100 mg BID. Allergies: None mentioned. Past Medical History: Mitral valve prolapse diagnosed in childhood, requires antibiotics before dental procedures. Surgical History: Recent section. Related Data Home Medications Medication Instructions Recorded Confirmed Lactobacillus rhamnosus GG 20 20 cell PO DAILY 12/20/23 08/12/24 billion cell capsule (Probiotic Digestive Care) vitamin-ferrous sulfate 1 tab PO DAILY 12/20/23 08/12/24 27 mg iron-folic acid 0.8 mg tablet Previous Rx's Medication Instructions Recorded sertraline 25 mg tablet 25 mg PO DAILY #30 tabs 07/16/24 acetaminophen 325 mg tablet 650 mg (2 x 325 mg) PO Q6H #60 tabs 08/08/24 docusate sodium 100 mg capsule 100 mg PO DAILY #30 caps 08/08/24 enoxaparin 60 mg/0.6 mL 60 mg (0.6 mL) SUBCUT Q12H #18 mL 08/08/24 subcutaneous syringe (Lovenox) ibuprofen 600 mg tablet 600 mg PO Q6H #90 tabs 08/08/24 oxycodone 5 mg tablet 5 mg PO Q4H PRN Pain, Moderate 08/08/24 (4-6) #30 tabs labetalol 100 mg tablet 100 mg PO BID #60 tabs 08/11/24 Allergies Allergy/AdvReac Type Severity Reaction Status Date / Time Penicillins Allergy Severe Blister Verified 08/05/24 14:34 amoxicillin [AMOXICILLIN] Allergy Unknown Verified 08/05/24 22:45 Benzodiazepines AdvReac Dependence Verified 08/05/24 14:34 Opioids - Morphine Analogues AdvReac Dependence Verified 08/05/24 14:34 Review of Systems Review of Systems Narrative: Constitutional: Reports headache, swelling in legs and hands. Eyes: No visual changes. Ears/Nose/Throat: No complaints. Respiratory: No shortness of breath. Cardiovascular: Reports elevated blood pressure. Gastrointestinal: No abdominal pain, reports feeling swollen in the abdomen. Genitourinary: No complaints. Skin: No rashes or lesions. Musculoskeletal: Reports swelling in legs and hands. Neurological: Reports headache, no visual changes, no history of blood clots. Psychiatric: No complaints. Other: No additional complaints. Patient History Medical History (Updated 08/12/24 @ 05:19 by Chadwick Trinidad MD) depression Fractured great toe (~2012) Abnormal endoscopy of upper gastrointestinal tract Chemical dependency Left lower quadrant abdominal pain Anxiety Twin gestation in first trimester Threatened miscarriage Surgical History (Updated 12/20/23 @ 13:16 by Caterina Blankenship RN) History of appendectomy Family History (Updated 12/20/23 @ 13:23 by Caterina Blankenship RN) Mother Discoid lupus Osteoporosis Rheumatoid arthritis Uterine prolapse Memory loss Hyperthyroidism Father Emphysema lung Cancer Heavy smoker Alcoholism Sister Family estrangement Substance abuse Mental health problem Brother Anxiety De Quervain's tenosynovitis Sister Substance abuse Anxiety Depression PCOS (polycystic ovarian syndrome) Brother Back injury Substance abuse Chronic pain Daughter Eczema Social History marital status: unmarried,single number of children: 1 household members: children lives independently: Yes caregiver/support person: Yes housing: house pets and animals: Yes (4 small dogs, poultry) education level: vocational (some college) 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) current occupational exposures/hazards: No special vamshi needs: No travel history: over 6 months ago seatbelt use: always helmet use: No (counseled to get and use one) water heater temp set < 120 deg: Yes working smoke detector in home: Yes fire extinguisher in home: No carbon monox detector in home: Yes firearms in home: Yes firearms unloaded and locked: Yes do you feel safe at home: Yes Smoking Status: Former smoker Tobacco: How many years used: 14 second hand exposure: Yes (s/o smokes, but not around pt) alcohol intake: former (sober since early 2022) substance use type: former substance user (sober since early 2022) and marijuana (not while /) during the past year weight has: decreased > 10 lbs well-balanced diet: about half the time daily servings fruits/ve-4 caffeine: Yes (quit w/ +UPT, discussed 200mg/day limit) Type(s) of exercise: walking frequency: daily Smoking Status: Former smoker tobacco type: cigarettes alcohol intake frequency: other Exam Narrative Exam Narrative: General: Well appearing, well nourished, in no distress. Skin: Good turgor, no rash, unusual bruising or prominent lesions. Head: Normocephalic, atraumatic. HEENT: Conjunctiva clear, EOM intact, PERRL, Mucous membranes moist. Neck: Supple, normal ROM. Heart: Regular rate and rhythm, no murmur or gallop or rubs. Lungs: Clear to auscultation. No rales, rhonchi, or wheezes. Abdomen: Soft and nontender. Bowel sounds normal. No mass or hernia. Back: Spine normal without deformity or tenderness, no CVA tenderness. Extremities: Significant swelling in legs. No deformities, edema. Peripheral pulses intact. Neurologic: CN 2-12 normal. Normal sensation and motor exam. 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 Psychiatric: Oriented X3. Normal mood and affect. Initial Vital Signs Initial Vital Signs: Vital Signs Temperature 98.7 F 08/12/24 03:32 Pulse Rate 87 08/12/24 03:32 Respiratory Rate 18 08/12/24 03:32 Blood Pressure 169/93 H 08/12/24 03:32 Pulse Oximetry 98 08/12/24 03:32 Oxygen Delivery Method Room Air 08/12/24 03:32 Course Orders Ordered: ED Orders 08/12/24 03:41 UA Complete [Urinalysis and Microscopic] Stat 08/12/24 03:51 CBC Auto Diff [Complete Blood Count AUTO DIFF] Stat CMP [Comprehensive Metabolic Panel] Stat LDH [Lactate Dehydrogenase] Stat Magnesium Stat NT-proBNP (BNP-Adult 18+) Stat 08/12/24 04:13 EKG-12 Lead Stat Acetaminophen (Acetaminophen 325 Mg Tablet) 650 mg PO Q6H JEFFY Carboprost Tromethamine (Carboprost 250 Mcg/Ml Ampul) 250 mcg IM Q90M PRN PRN Reason: Bleeding Diphtheria/Tetanus/Acell Pertussis (Tet,Diph,Pertuss(Acell),Vac/Pf 0.5 Ml Syringe) 0.5 ml IM .ONCE ONE Stop: 08/12/24 05:06 Emollient Ointment (Lanolin Oint 7 Gm) 1 applic TOP PRN PRN PRN Reason: Skin protectant Erythromycin (Erythromycin Ophth 1 Gm Oint) 1 applic EYE-BOTH NOW [facility] Stop: 08/14/24 23:59 Glucose (Dextrose Gel([place] Hypoglyc) 37 Ml/Tube Gel..Gram.) 68.039 ml 0.5 ml/kg (68.039 ml) PO NOW ONE Stop: 08/12/24 05:06 Hepatitis B Vaccine (Hepatitis B Vac (Engerix-B) 10 Mcg/0.5 Ml Vial) 10 mcg IM .ONCE ONE Stop: 08/12/24 05:06 Magnesium Sulfate (Magnesium Sulfate) 4 gm in 100 mls @ 150 mls/hr IV NOW ONE Stop: 08/12/24 05:39 Last Admin: 08/12/24 05:06 Dose: 150 mls/hr Documented By: Co-signed By: FRANCISCO Magnesium Sulfate (Magnesium Sulfate) 20 gm in 500 mls @ 50 mls/hr IV CONT JEFFY Sodium Chloride (Normal Saline 0.9%) 1,000 mls @ 1,000 mls/hr IV BOLUS ONE Stop: 08/12/24 06:04 Calcium Gluconate 4.65 meq/ (Sodium Chloride) 60 mls @ 180 mls/hr IV PRN PRN PRN Reason: Allergic Symptoms Magnesium Sulfate (Magnesium Sulfate) 20 gm in 500 mls @ 50 mls/hr IV CONT JEFFY Tranexamic Acid 1,000 mg/ (Sodium Chloride) 100 mls @ 200 mls/hr IV NOW PRN PRN Reason: Bleeding Oxytocin/Lactated Ringer's (Oxytocin Premix) 30 unit in 500 mls @ 200 mls/hr IV NOW PRN; Protocol PRN Reason: Bleeding Ibuprofen (Ibuprofen 600 Mg Tablet) 600 mg PO Q6H JEFFY Ibuprofen (Ibuprofen 600 Mg Tablet) 600 mg PO Q6H [facility] Ketorolac Tromethamine (Ketorolac 30 Mg/Ml Vial) 30 mg IV NOW ONE Stop: 08/12/24 05:06 Ketorolac Tromethamine (Ketorolac 30 Mg/Ml Vial) 30 mg IV Q6H [facility] Stop: 08/12/24 23:16 Labetalol HCl (Labetalol 20 Mg/4 Ml Syringe) 20 mg IV PRN PRN; Protocol PRN Reason: SBP>= 160 or DBP >=110 Measles/Mumps/Rubella Vaccine Live (Measles,Mumps,Rubella Vacc/Pf 0.5 Ml Vial) 0.5 ml SUBCUT .ONCE ONE Stop: 08/12/24 05:06 Methylergonovine Maleate (Methylergonovine 0.2 Mg/Ml Vial) 0.2 mg IM NOW PRN PRN Reason: Bleeding Methylergonovine Maleate (Methylergonovine 0.2 Mg Tablet) 0.2 mg PO Q6H PRN PRN Reason: Bleeding Misoprostol (Misoprostol 200 Mcg Tablet) 800 mcg IN NOW PRN PRN Reason: Bleeding Misoprostol (Misoprostol 200 Mcg Tablet) 400 mcg SL NOW PRN PRN Reason: Bleeding Naloxone HCl (Naloxone 0.4 Mg/Ml Vial) 0.2 mg IV Q2MIN PRN PRN Reason: Opiate Reversal Naloxone HCl (Naloxone 0.4 Mg/Ml Vial) 0.2 mg IV Q2MIN PRN PRN Reason: Opiate Reversal Ondansetron HCl (Ondansetron 4 Mg/2 Ml Inj) 4 mg IV Q6H PRN PRN Reason: Nausea And Vomiting Oxycodone HCl (Oxycodone Ir 5 Mg Tablet) 5 mg PO Q4H PRN PRN Reason: Pain, Moderate (4-6) Oxytocin (Oxytocin 10 Unit/Ml Vial) 10 unit IM NOW PRN PRN Reason: Bleeding Phytonadione (Phytonadione 1 Mg/0.5 Ml Syringe) 1 mg IM NOW [facility] Stop: 08/14/24 23:59 Vit/Calcium/Iron/Folic Ac ( Vit,Calc/Iron/Folic 1 Tablet) 1 tab PO DAILY [facility] Prochlorperazine (Prochlorperazine 10 Mg/2 Ml Vial) 10 mg IV NOW ONE Stop: 08/12/24 05:06 Rho Immune Globulin (Rho(D) Immune Globulin 1,500 Unit Syringe) 1,500 unit IM NOW PRN PRN Reason: Prevent Rh incomatibility Witch Sudha/Glycerin (Witch Sudha/Glycerin Pads) 1 each TOP Q30M PRN PRN Reason: Itching Discontinued Medications Acetaminophen (Acetaminophen 325 Mg Tablet) 650 mg PO Q6H JEFFY Dexamethasone (Dexamethasone 10 Mg/Ml Vial) 10 mg IV NOW ONE Stop: 08/12/24 05:06 Diphenhydramine HCl (Diphenhydramine 50 Mg/Ml Vial) 25 mg IV NOW ONE Stop: 08/12/24 05:06 Labetalol HCl (Labetalol 100 Mg Tablet) 100 mg PO NOW ONE Stop: 08/12/24 04:05 Last Admin: 08/12/24 04:33 Dose: 100 mg Documented By: Vital Signs Vital signs: Vital Signs - 8 hr 08/12/24 03:32 Temperature 98.7 F Pulse Rate 87 Respiratory Rate 18 Blood Pressure 169/93 H Pulse Oximetry 98 Oxygen Delivery Method Room Air MDM - Headache Lab Data Lab results narrative: Patient's laboratory evaluation shows mild leukocytosis at 13, hemoglobin of 8.3 -platelet count does not appear to be significantly low found to be 409 -patient has mildly elevated ALT/AST AST 2 times upper limit of normal -mild elevation of LDH -mild elevation of BNP 08/12/24 03:51 08/12/24 03:51 Labs: Lab Results 08/12/24 Range/Units 03:51 WBC 13.0 H (4.5-11.0) X10^3/uL RBC 2.99 L (4.0-5.2) X10^6/uL Hgb 8.3 L (12.0-16.0) g/dL Hct 25.2 L (36-46) % MCV 84.4 (80-100) fL MCH 27.8 (26-34) PG MCHC 32.9 (30-36) % RDW 15.2 H (11.6-14.8) % Plt Count 409 H (150-400) X10^3/uL Neut % (Auto) 73.5 (50-75) % Lymph % (Auto) 15.6 L (25-40) % [place] % (Auto) 6.8 (3-14) % Eos % (Auto) 3.3 (2-4) % Baso % (Auto) 0.8 (0-2) % Neut # (Auto) 9500 H (1499-1905) /uL Lymph # (Auto) 2000 (0500-1282) /uL [place] # (Auto) 900 (0-900) /uL Eos # (Auto) 400 (0-450) /uL Baso # (Auto) 100 (0-100) /uL Sodium 136 L (137-145) mmol/L Potassium 3.8 (3.4-5.1) mmol/L Chloride 106 (98-107) mmol/L Carbon Dioxide 24 (22-32) mmol/L BUN 18 H (7-17) mg/dL Creatinine 0.61 (0.52-1.04) mg/dL Estimated GFR > 60 (>60) mL/min BUN/Creatinine Ratio 29.5 H (6-22) Glucose 91 (70-100) mg/dL Calcium 9.1 (8.4-10.2) mg/dL Magnesium 2.0 (1.6-2.3) mg/dL Total Bilirubin 0.5 (0.2-1.3) mg/dL AST 89 H (14-36) IU/L ALT 33 (<35) IU/L Alkaline Phosphatase 125 (38-126) U/L Lactate Dehydrogenase 264 H (120-246) U/L NT-Pro-B Natriuret Pep 593 H (<125) pg/mL Total Protein 6.4 (6.3-8.2) g/dL Albumin 3.2 L (3.5-5.0) g/dL Globulin 3.2 (1.7-4.1) g/dL Albumin/Globulin Ratio 1.0 (1.0-2.8) ECG Data Attestation: I personally reviewed and interpreted this ECG as follows: Interpretation: Patient's EKG was reviewed that shows rate of 81 normal sinus rhythm, no significant ST segment elevation, depression or significant abnormalities requiring ED intervention, no signs of S1 Q3 T3, no acute heart strain features. No previous for comparison. MDM Narrative Medical decision making narrative: 39-year-old female who developed preeclampsia towards the end of her recent and ultimately required section started on labetalol 100 mg b.i.d., enoxaparin b.i.d. who is presenting for several blood pressures greater than 160 at home, headache over the last several days nonresponsive to Tylenol and feeling of total body volume overload INITIAL EVALUATION AND PLAN: - Redo labs including liver enzymes, platelet counts, CBC, urine sample for protein, and magnesium level. - Consult with PHOTOGRAPHY COORDINATOR regarding the need for a CT or CT angiogram to evaluate for dural sinus thrombosis/management of preeclampsia - Continue current medications including enoxaparin, labetalol, and pain management as needed. - Monitor blood pressure and headache symptoms closely. Differential diagnosis includes but is not limited to: preeclampsia, dural sinus thrombosis, medication side effects, hypertension. -patient presents with blood pressure greater than 160 systolic, has been taking labetalol 100 mg b.i.d., we will administer another dose of her home medications at this time in order to improve blood pressure. At this time patient is alert oriented mentating appropriately has noted no signs of seizure-like activity has no visual changes no neurological deficits at this time. -we will obtain lab work as documented above -case discussed with of the OBGYN team who recommends 4 mg of magnesium now, 2 mg continuous over the next hours for 24 hours. We discussed patient's labs and she recommended admission to [facility] due to preeclampsia with severe features. -on reassessment after labetalol patient's systolic blood pressure in the 130s -discussed with OBGYN about obtaining CT of the head for dural sinus thrombosis, state that they will treat for preeclampsia 1st in order if she has unresolving symptoms. -patient to be admitted to the LD team for ongoing magnesium administration Discharge Plan Departure Patient Disposition: Admitted As Inpatient Clinical Impression: Pre-eclampsia Admit Date/Time: 08/12/24 05:03 Admit Provider: Zakia Morgan
[2024-08-12 04:28] LABS: Alanine Aminotransferase 33 IU/L (<35); Albumin 3.2 g/dL (3.5-5.0); Alkaline Phosphatase 125 U/L (38-126); Aspartate Aminotransferase 89 IU/L (14-36); BUN Creatinine Ratio 29.5 (6-22); Bilirubin Total 0.5 mg/dL (0.2-1.3); Blood Urea Nitrogen 18 mg/dL (7-17); Calcium 9.1 mg/dL (8.4-10.2); Carbon Dioxide 24 mmol/L (22-32); Chloride 106 mmol/L (98-107); Estimated Glomerular Filt Rate > 60 mL/min (>60); Globulin 3.2 g/dL (1.7-4.1); Glucose 91 mg/dL (70-100); HEMOLYSIS < 15 (0-50); Lactate Dehydrogenase 264 U/L (120-246); Potassium 3.8 mmol/L (3.4-5.1); Sodium 136 mmol/L (137-145); Total Protein 6.4 g/dL (6.3-8.2)
[2024-08-12] MEDS: LABETALOL 100 MG TABLET PO ×2 (04:33→10:37)
--- NOTE | 2024-08-12 04:46 | EKG_ITS ---
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
[2024-08-12 04:48] LABS: NT-proBNP (BNP-Adult 18+) 593 pg/mL (<125)
[2024-08-12] MEDS: MAGNESIUM SULFATE 4 GM/100 ML PIGGYBACK IV (05:06)
[2024-08-12] MEDS: LACTATED RINGERS 1,000 ML 60 ML IV (06:00)
[2024-08-12 06:05] LABS: Creatinine Urine Random 33.75 mg/dL; Protein (Total) Urine Random 116 mg/dL (0-12); Protein Creatinine Ratio Urine 3.43 GRAM/24H
[2024-08-12] MEDS: MAGNESIUM SULFATE 20 GM/500 ML IV.SOLN IV ×2 (06:07→15:32)
[2024-08-12 06:09] LABS: Add Manual Diff / Slide Review NO; Basophils Absolute Auto 100 /uL (0-100); Basophils Percent Auto 0.5 % (0-2); Eosinophils Absolute Auto 500 /uL (0-450); Eosinophils Percent Auto 3.4 % (2-4); Hematocrit 25.9 % (36-46); Hemoglobin 8.3 g/dL (12.0-16.0); Lymphocytes Absolute Auto 2100 /uL (1100-4500); Lymphocytes Percent Auto 14.2 % (25-40); Mean Corpuscular Hemoglobin 27.3 PG (26-34); Mean Corpuscular Volume 85.2 fL (80-100); Monocytes Absolute Auto 900 /uL (0-900); Monocytes Percent Auto 6.2 % (3-14); Neutrophils Absolute Auto 11100 /uL (1500-7000); Neutrophils Percent Auto 75.7 % (50-75); Platelet Count 437 X10^3/uL (150-400); Red Blood Cell Count 3.04 X10^6/uL (4.0-5.2); White Blood Cell Count 14.7 X10^3/uL (4.5-11.0)
[2024-08-12] MEDS: KETOROLAC 30 MG/ML VIAL IV ×2 (06:15→13:28)
[2024-08-12 06:17] LABS: Alanine Aminotransferase 33 IU/L (<35); Albumin 3.2 g/dL (3.5-5.0); Alkaline Phosphatase 129 U/L (38-126); Aspartate Aminotransferase 39 IU/L (14-36); Bilirubin Total 0.4 mg/dL (0.2-1.3); Blood Urea Nitrogen 16 mg/dL (7-17); Calcium 9.1 mg/dL (8.4-10.2); Carbon Dioxide 25 mmol/L (22-32); Chloride 104 mmol/L (98-107); Estimated Glomerular Filt Rate > 60 mL/min (>60); Globulin 3.1 g/dL (1.7-4.1); Glucose 96 mg/dL (70-100); HEMOLYSIS < 15 (0-50); Potassium 3.7 mmol/L (3.4-5.1); Sodium 136 mmol/L (137-145); Total Protein 6.3 g/dL (6.3-8.2); Uric Acid 4.6 mg/dL (2.5-6.2)
--- NOTE | 2024-08-12 08:14 | PM.HP.IH.1 ---
History of Present Illness History of Present Illness Date Patient Seen: 08/12/24 Time Patient Seen: 08:00 Chief complaint: Post - BP Elevated Narrative: Pt is a 39yo PPD # 6 s/p primary . complicated by gestational hypertension diagnosed the day of admission for IOL, which progressed to pre-eclampsia without severe features immediately . The pt was in the hospital yesterday, and reported that her BPs have been elevated at home to the upper 150s/90s. She denied any headache, vision changes, RUQ pain at that time. She continued to have swelling since delivery. She was initiated on Labetalol 100mg BID PO. The pt took 2 doses yesterday. She developed a severe headache last night that would not resolve with Tylenol or Ibuprofen. She took her BP at home, and it was 164/101. She decided to come to the ED for evaluation due to the headache intensity and BP elevation. In the ED, the pts BP was noted to be elevated to 169/93. Lab work showed elevated AST, normal platelets and H/H stable. EKG was reassuring. [facility] Medical History (Updated 08/12/24 @ 05:19 by Chadwick Trinidad MD) depression Fractured great toe (~2012) Abnormal endoscopy of upper gastrointestinal tract Chemical dependency Left lower quadrant abdominal pain Anxiety Twin gestation in first trimester Threatened miscarriage Surgical History (Updated 12/20/23 @ 13:16 by Caterina Blankenship RN) History of appendectomy Family History (Updated 12/20/23 @ 13:23 by Caterina Blankenship RN) Mother Discoid lupus Osteoporosis Rheumatoid arthritis Uterine prolapse Memory loss Hyperthyroidism Father Emphysema lung Cancer Heavy smoker Alcoholism Sister Family estrangement Substance abuse Mental health problem Brother Anxiety De Quervain's tenosynovitis Sister Substance abuse Anxiety Depression PCOS (polycystic ovarian syndrome) Brother Back injury Substance abuse Chronic pain Daughter Eczema Social History marital status: unmarried,single number of children: 1 household members: children lives independently: Yes caregiver/support person: Yes housing: house pets and animals: Yes (4 small dogs, poultry) education level: vocational (some college) 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) current occupational exposures/hazards: No special vamshi needs: No travel history: over 6 months ago seatbelt use: always helmet use: No (counseled to get and use one) water heater temp set < 120 deg: Yes working smoke detector in home: Yes fire extinguisher in home: No carbon monox detector in home: Yes firearms in home: Yes firearms unloaded and locked: Yes do you feel safe at home: Yes Smoking Status: Former smoker Tobacco: How many years used: 14 second hand exposure: Yes (s/o smokes, but not around pt) alcohol intake: former substance use type: former substance user (sober since early 2022) and marijuana (not while /) during the past year weight has: decreased > 10 lbs well-balanced diet: about half the time daily servings fruits/ve-4 caffeine: Yes (quit w/ +UPT, discussed 200mg/day limit) Type(s) of exercise: walking frequency: daily Meds Home Medications and Allergies Home Medications Medication Instructions Recorded Confirmed Type Lactobacillus rhamnosus GG 20 20 cell PO DAILY 12/20/23 08/12/24 History billion cell capsule (Probiotic Digestive Care) vitamin-ferrous sulfate 1 tab PO DAILY 12/20/23 08/12/24 History 27 mg iron-folic acid 0.8 mg tablet sertraline 25 mg tablet 25 mg PO DAILY #30 tabs 07/16/24 08/05/24 Rx acetaminophen 325 mg tablet 650 mg (2 x 325 mg) PO Q6H #60 tabs 08/08/24 08/12/24 Rx docusate sodium 100 mg capsule 100 mg PO DAILY #30 caps 08/08/24 08/12/24 Rx enoxaparin 60 mg/0.6 mL 60 mg (0.6 mL) SUBCUT Q12H #18 mL 08/08/24 08/12/24 Rx subcutaneous syringe (Lovenox) ibuprofen 600 mg tablet 600 mg PO Q6H #90 tabs 08/08/24 08/12/24 Rx oxycodone 5 mg tablet 5 mg PO Q4H PRN Pain, Moderate 08/08/24 08/12/24 Rx (4-6) #30 tabs labetalol 100 mg tablet 100 mg PO BID #60 tabs 08/11/24 08/12/24 Rx Allergies Allergy/AdvReac Type Severity Reaction Status Date / Time Penicillins Allergy Severe Blister Verified 08/05/24 14:34 amoxicillin [AMOXICILLIN] Allergy Unknown Verified 08/05/24 22:45 Benzodiazepines AdvReac Dependence Verified 08/05/24 14:34 Opioids - Morphine Analogues AdvReac Dependence Verified 08/05/24 14:34 Exam Vital Signs (past 8 hours): - 08/12/24 03:32 08/12/24 04:45 08/12/24 05:00 Temperature 98.7 F Pulse Rate 87 Respiratory Rate 18 Blood Pressure 169/93 H 152/73 H 131/65 Pulse Oximetry 98 Oxygen Delivery Method Room Air 08/12/24 05:15 08/12/24 05:16 08/12/24 05:20 Temperature Pulse Rate 80 Respiratory Rate Blood Pressure 133/76 131/65 Pulse Oximetry 98 Oxygen Delivery Method Room Air 08/12/24 05:24 08/12/24 05:50 08/12/24 06:05 Temperature 98 F Pulse Rate 80 75 Respiratory Rate 18 19 Blood Pressure 133/76 127/63 128/66 Pulse Oximetry 97 98 Oxygen Delivery Method Room Air 08/12/24 06:19 08/12/24 07:30 Temperature 98.4 F Pulse Rate 76 75 Respiratory Rate 18 16 Blood Pressure 128/66 119/60 Pulse Oximetry 99 97 Oxygen Delivery Method Oxygen Delivery Method Room Air Narrative Exam Narrative: Gen: NAD, sitting comfortably in bed, appears well Neck: no JVD CV: RRR, no murmurs Resp: clear to auscultation bilaterally Abd: soft, nontender, bruising over dependent portion of pannus, dressing c/d/i Ext: 2+ pitting edema to knee level Objective Labs 08/12/24 05:43 08/12/24 05:43 Labs: Laboratory Results - last 24 hr 08/12/24 08/12/24 08/12/24 03:51 05:40 05:43 WBC 13.0 H 14.7 H RBC 2.99 L 3.04 L Hgb 8.3 L 8.3 L Hct 25.2 L 25.9 L MCV 84.4 85.2 MCH 27.8 27.3 MCHC 32.9 32.0 RDW 15.2 H 15.0 H Plt Count 409 H 437 H Neut % (Auto) 73.5 75.7 H Lymph % (Auto) 15.6 L 14.2 L [place] % (Auto) 6.8 6.2 Eos % (Auto) 3.3 3.4 Baso % (Auto) 0.8 0.5 Neut # (Auto) 9500 H 55723 H Lymph # (Auto) 2000 2100 [place] # (Auto) 900 900 Eos # (Auto) 400 500 H Baso # (Auto) 100 100 Sodium 136 L 136 L Potassium 3.8 3.7 Chloride 106 104 Carbon Dioxide 24 25 BUN 18 H 16 Creatinine 0.61 0.64 Estimated GFR > 60 > 60 BUN/Creatinine Ratio 29.5 H 25.0 H Glucose 91 96 Uric Acid 4.6 Calcium 9.1 9.1 Magnesium 2.0 Total Bilirubin 0.5 0.4 AST 89 H 39 H ALT 33 33 Alkaline Phosphatase 125 129 H Lactate Dehydrogenase 264 H NT-Pro-B Natriuret Pep 593 H Total Protein 6.4 6.3 Albumin 3.2 L 3.2 L Globulin 3.2 3.1 Albumin/Globulin Ratio 1.0 1.0 U Random Total Protein 116 H Urine Creatinine 33.75 Protein/Creatinin Ratio 3.43 Assessment & Plan Assessment & Plan narrative: Pt is a 39yo PPD # 6 s/p primary , complicated by gestational hypertension diagnosed the day of admission for IOL, which progressed to pre-eclampsia without severe features immediately . Initiated on PO Labetalol yesterday outpaient, however BPs to severe range and symptomatic with headache - now meeting criteria for pre-eclampsia with severe features. - Received 4g MgSO4 bolus, continue 2g/hr for 24hrs - Continue PO Labetalol 100mg BID - Monitor BPs closely, may need to increase Labetalol dosing - 20mg IV Lasix now, will potentially repeat this evening dependent on severity of swelling ongoing - Plan for dressing removal tomorrow Time-Based Coding :: 60 spent with patient and on the chart (including review of chart, obtaining history, exam, reviewing outside data, placing orders, documenting exam and treatment plan, and counseling patient) on 08/12/24. 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
[2024-08-12] MEDS: ENOXAPARIN 100 MG/ML SYRINGE 67 MG SUBCUT ×2 (09:19→21:09)
[2024-08-12] MEDS: FUROSEMIDE 20 MG/2 ML VIAL IV ×2 (09:20→21:10)
[2024-08-12] MEDS: ACETAMINOPHEN 325 MG TABLET 650 MG PO ×3 (09:41→23:55)
--- NOTE | 2024-08-12 20:09 | PC.NURSE ---
per day shift report PT has not slept all day. RN entered room at 1930 to do vital signs and assessment but patient was asleep and RN did not wake at this time to allow sleep.
[2024-08-12] MEDS: IBUPROFEN 600 MG TABLET PO (20:25)
[2024-08-12] MEDS: LABETALOL 100 MG TABLET 200 MG PO (21:10)
[2024-08-13] VITALS (17 sets, daily range): BP systolic 111–143; BP diastolic 55–88; PULSE 72–82; RESP 14–16; TEMP 36.4–37.1; O2SAT 98–100
[2024-08-13] MEDS: LACTATED RINGERS 1,000 ML 60 ML IV (00:15)
--- NOTE | 2024-08-13 01:31 | PC.NURSE ---
RN at bedside at 0000 do check vital signs, Pt asleep and allowed to rest.
--- NOTE | 2024-08-13 01:33 | PC.NURSE ---
RN at bedside at 0100. Pt asleep and allowed to rest. RN did not wake for vital signs at this time.
[2024-08-13] MEDS: MAGNESIUM SULFATE 20 GM/500 ML IV.SOLN IV (01:41)
[2024-08-13] MEDS: IBUPROFEN 600 MG TABLET PO ×4 (04:05→22:57)
[2024-08-13] MEDS: LABETALOL 100 MG TABLET 200 MG PO ×2 (08:55→21:01)
[2024-08-13] MEDS: ENOXAPARIN 100 MG/ML SYRINGE 67 MG SUBCUT ×2 (08:55→21:01)
--- NOTE | 2024-08-13 09:38 | P.PN_ITS ---
Subjective Subjective Date Patient Seen: 08/13/24 Time Patient Seen: 09:45 Interval history: The pt this morning reports that she still has a moderate lingering headache. She denies any vision changes, RUQ pain. Her swelling is improving. She is , continuing to work on latch. She feels her baby prefers the bottle. Exam Vital Signs (past 8 hours): - 08/13/24 01:59 08/13/24 03:57 08/13/24 06:24 Temperature 98.2 F 98.0 F 97.9 F Pulse Rate 75 79 72 Respiratory Rate Blood Pressure 119/66 126/72 123/69 Pulse Oximetry 98 99 98 Oxygen Delivery Method 08/13/24 07:56 08/13/24 07:56 08/13/24 08:52 Temperature 97.6 F Pulse Rate 76 Respiratory Rate 15 Blood Pressure 116/57 L 143/79 H Pulse Oximetry 100 100 Oxygen Delivery Method Room Air 08/13/24 08:55 Temperature Pulse Rate 76 Respiratory Rate Blood Pressure 143/79 H Pulse Oximetry Oxygen Delivery Method Oxygen Delivery Method Room Air Narrative Exam Narrative: Gen: NAD, sitting comfortably in bed, appears well CV: RRR, no murmurs Resp: clear to auscultation bilaterally Abd: soft, nontender, dressing removed with incision c/d/i and healing well Ext: 1+ pitting edema to upper calf level Objective Labs 08/12/24 05:43 08/12/24 05:43 [facility] Medical History (Updated 08/12/24 @ 05:19 by Chadwick Trinidad MD) depression Fractured great toe (~2012) Abnormal endoscopy of upper gastrointestinal tract Chemical dependency Left lower quadrant abdominal pain Anxiety Twin gestation in first trimester Threatened miscarriage Surgical History (Updated 12/20/23 @ 13:16 by Caterina Blankenship RN) History of appendectomy Family History (Updated 12/20/23 @ 13:23 by Caterina Blankenship RN) Mother Discoid lupus Osteoporosis Rheumatoid arthritis Uterine prolapse Memory loss Hyperthyroidism Father Emphysema lung Cancer Heavy smoker Alcoholism Sister Family estrangement Substance abuse Mental health problem Brother Anxiety De Quervain's tenosynovitis Sister Substance abuse Anxiety Depression PCOS (polycystic ovarian syndrome) Brother Back injury Substance abuse Chronic pain Daughter Eczema Social History marital status: unmarried,single number of children: 1 household members: children lives independently: Yes caregiver/support person: Yes housing: house pets and animals: Yes (4 small dogs, poultry) education level: vocational (some college) 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) current occupational exposures/hazards: No special vamshi needs: No travel history: over 6 months ago seatbelt use: always helmet use: No (counseled to get and use one) water heater temp set < 120 deg: Yes working smoke detector in home: Yes fire extinguisher in home: No carbon monox detector in home: Yes firearms in home: Yes firearms unloaded and locked: Yes do you feel safe at home: Yes Smoking Status: Former smoker Tobacco: How many years used: 14 second hand exposure: Yes (s/o smokes, but not around pt) alcohol intake: former substance use type: former substance user (sober since early 2022) and marijuana (not while /) during the past year weight has: decreased > 10 lbs well-balanced diet: about half the time daily servings fruits/ve-4 caffeine: Yes (quit w/ +UPT, discussed 200mg/day limit) Type(s) of exercise: walking frequency: daily Assessment & Plan Assessment & Plan narrative: Pt is a 39yo PPD # 7 s/p primary , complicated by gestational hypertension diagnosed the day of admission for IOL, which progressed to pre-eclampsia without severe features immediately . Presented with severe range BPs and symptoms, now with pre-eclampsia with severe features. s/p 24hrs on MgS04. - Discontinue MgSO4 - Increase to PO Labetalol 200mg BID - Monitor BPs closely, may need to increase Labetalol dosing or consider adding Nifedipine - Repeat 20mg IV Lasix now - support Time-Based Coding :: 40 spent with patient and on the chart (including review of chart, obtaining history, exam, reviewing outside data, placing orders, documenting exam and treatment plan, and counseling patient) on 08/13/24. Quality VTE Deep Vein Thrombosis/Pulmonary Embolism Present on Admission: No [facility] [employer] Document charge(s): Yes Charge Codes Subsequent inpatient/observation care: [id number]
[2024-08-13] MEDS: FUROSEMIDE 20 MG/2 ML VIAL IV (09:56)
[2024-08-13] MEDS: ACETAMINOPHEN 325 MG TABLET 650 MG PO ×3 (10:09→22:56)
[2024-08-13] MEDS: DOCUSATE 100 MG CAPSULE PO (16:54)
[2024-08-13] MEDS: NIFEdipine 30 MG TAB ER PO (19:45)
[2024-08-14 00:26] VITALS: BP 108/49; PULSE 83; RESP 19; TEMP 36.9; O2SAT 99
[2024-08-14] MEDS: OXYCODONE IR 5 MG TABLET PO (00:27)
[2024-08-14 02:00] VITALS: BP 109/58; PULSE 75; RESP 18; O2SAT 98
[2024-08-14 06:00] VITALS: BP 113/67; PULSE 82; O2SAT 97
[2024-08-14] MEDS: ACETAMINOPHEN 325 MG TABLET 650 MG PO (06:43)
[2024-08-14] MEDS: IBUPROFEN 600 MG TABLET PO (06:44)
--- NOTE | 2024-08-14 08:47 | PM.DS.IH.1 ---
History of Present Illness History of Present Illness Date Patient Seen: 08/14/24 Time Patient Seen: 08:15 Chief complaint: Post - BP Elevated Narrative: Pt is a 39yo PPD # 6 s/p primary . complicated by gestational hypertension diagnosed the day of admission for IOL, which progressed to pre-eclampsia without severe features immediately . The pt was in the hospital yesterday, and reported that her BPs have been elevated at home to the upper 150s/90s. She denied any headache, vision changes, RUQ pain at that time. She continued to have swelling since delivery. She was initiated on Labetalol 100mg BID PO. The pt took 2 doses yesterday. She developed a severe headache last night that would not resolve with Tylenol or Ibuprofen. She took her BP at home, and it was 164/101. She decided to come to the ED for evaluation due to the headache intensity and BP elevation. In the ED, the pts BP was noted to be elevated to 169/93. Lab work showed elevated AST, normal platelets and H/H stable. EKG was reassuring. Discharge Providers Provider Date of admission: 08/12/24 05:03 Discharge Date: 08/14/24 Primary care physician: Nurys Bravo MD Consults: 08/12/24 05:08 Consult to Ancillary Specialist Routine Comment: Discharge provider: Jamia Barger MD Summary Hospital Course Discharge Diagnosis: Pre-eclampsia with severe features Hospital Course: The pt was admitted with pre-eclampsia with severe features. She was initiated on MgSO4 for 24hrs. Her PO Labetalol was increased to 200mg BID. Her BPs improved. Off the MgSO4 her BPs rachelle slightly, not to severe range. Nifedipine 30mg XR was initiated. Her BPs stabilized and were in adequate range for 24hrs prior to discharge. The pt also received IV Lasix while in the hospital, with significant improvement in her LE edema. She continued to have a very low-grade headache while in the hospital, but it was significantly improved and more likely due to fatigue/discomfort when sleeping. The pt was stable for d/c home. She will monitor her BPs TID at home, and has strict return precautions. Status at Discharge Cognitive/behavioral status at discharge: oriented Functional status at discharge: independent ambulation Overall status at discharge: patient is back to baseline Exam Vital Signs (past 8 hours): - 08/14/24 02:00 08/14/24 06:00 Pulse Rate 75 82 Respiratory Rate 18 Blood Pressure 109/58 L 113/67 Pulse Oximetry 98 97 Oxygen Delivery Method Room Air Narrative Exam Narrative: Gen: NAD, sitting comfortably in bed, appears well CV: RRR, no murmurs Resp: clear to auscultation bilaterally Abd: soft, nontender, incision c/d/i and healing well Ext: 1+ pitting edema to ankle level Objective Labs 08/12/24 05:43 08/12/24 05:43 [facility] Medical History (Updated 08/12/24 @ 05:19 by Chadwick Trinidad MD) depression Fractured great toe (~2012) Abnormal endoscopy of upper gastrointestinal tract Chemical dependency Left lower quadrant abdominal pain Anxiety Twin gestation in first trimester Threatened miscarriage Surgical History (Updated 12/20/23 @ 13:16 by Caterina Blankenship RN) History of appendectomy Family History (Updated 12/20/23 @ 13:23 by Caterina Blankenship RN) Mother Discoid lupus Osteoporosis Rheumatoid arthritis Uterine prolapse Memory loss Hyperthyroidism Father Emphysema lung Cancer Heavy smoker Alcoholism Sister Family estrangement Substance abuse Mental health problem Brother Anxiety De Quervain's tenosynovitis Sister Substance abuse Anxiety Depression PCOS (polycystic ovarian syndrome) Brother Back injury Substance abuse Chronic pain Daughter Eczema Social History marital status: unmarried,single number of children: 1 household members: children lives independently: Yes caregiver/support person: Yes housing: house pets and animals: Yes (4 small dogs, poultry) education level: vocational (some college) 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) current occupational exposures/hazards: No special vamshi needs: No travel history: over 6 months ago seatbelt use: always helmet use: No (counseled to get and use one) water heater temp set < 120 deg: Yes working smoke detector in home: Yes fire extinguisher in home: No carbon monox detector in home: Yes firearms in home: Yes firearms unloaded and locked: Yes do you feel safe at home: Yes Smoking Status: Former smoker Tobacco: How many years used: 14 second hand exposure: Yes (s/o smokes, but not around pt) alcohol intake: former substance use type: former substance user (sober since early 2022) and marijuana (not while /) during the past year weight has: decreased > 10 lbs well-balanced diet: about half the time daily servings fruits/ve-4 caffeine: Yes (quit w/ +UPT, discussed 200mg/day limit) Type(s) of exercise: walking frequency: daily Discharge Plan Discharge Plan Patient Disposition: Home Discharge orders & Medications Prescriptions: New nifedipine 30 mg Tablet Extended Release 24hr 30 mg PO DAILY Qty: 30 2RF labetalol 100 mg Tablet 200 mg PO BID Qty: 60 2RF Continued sertraline 25 mg tablet 25 mg PO DAILY Qty: 30 2RF labetalol 100 mg tablet 100 mg PO BID Qty: 60 2RF vit-ferrous sulfat-FA 27 mg iron- 0.8 mg tablet 1 tab PO DAILY Probiotic Digestive Care 20 billion cell capsule 20 cell PO DAILY acetaminophen 325 mg Tablet 650 mg PO Q6H Qty: 60 0RF docusate sodium 100 mg Capsule 100 mg PO DAILY Qty: 30 0RF ibuprofen 600 mg Tablet 600 mg PO Q6H Qty: 90 0RF oxycodone 5 mg Tablet 5 mg PO Q4H PRN (Reason: Pain, Moderate (4-6)) Qty: 30 0RF enoxaparin [Lovenox] 60 mg/0.6 mL syringe 60 mg SUBCUT Q12H Qty: 18 0RF Follow up/Referrals: Jamia Barger MD [Physician] - 08/18/24 12:00 pm Nurys Bravo MD [Primary Care Provider] - Diet/Activity/Treatments Diet: Diet as Tolerated, Regular and Low-sodium Skin/Wound/Dressing Care Report to your healthcare provider any signs of infection, such as:: chills, fever and increased pain Visit Report/Discharge Packet Instructions: DI for Pre-eclampsia Stand Alone Forms: Patient Portal/API, Stroke Signs & Symptoms Discharge Data Primary Care Provider: Nurys Bravo Discharges patient from system. Discharge Date/Time: 08/14/24 11:44 Quality VTE Deep Vein Thrombosis/Pulmonary Embolism Present on Admission: No [facility] Charge Codes Discharge inpatient/observation: [id number]
[2024-08-14 08:53] VITALS: BP 138/66; PULSE 89; RESP 16; TEMP 36.5; O2SAT 99
[2024-08-14 09:06] VITALS: BP 138/66; PULSE 89
[2024-08-14] MEDS: LABETALOL 100 MG TABLET 200 MG PO (09:06)
[2024-08-14] MEDS: ENOXAPARIN 100 MG/ML SYRINGE 67 MG SUBCUT (09:06)
[2024-08-14] MEDS: DOCUSATE 100 MG CAPSULE PO (09:06)
== END 2024-08-14 11:44 | disposition home or self-care (01) | DRG 776 ==
LOC: ED 03:39 → LABOR 05:19
PROVIDERS: Admitting Provider Student in an Organized Health Care Education/Training Program; Emergency Provider Emergency Medicine; PCP Family Medicine; Referring Provider Emergency Medicine; Visit Provider Student in an Organized Health Care Education/Training Program
DX: O14.15 Severe pre-eclampsia, complicating the puerperium (principal)
CPT/HCPCS: 36415; 80053; 83615; 83735; 83880; 84550; 85025; 93005; 93010; 99284; J1650; J1885; J1940; J3475